=== PATIENT | female | born 1970 | race Caucasian/White ===

== ENCOUNTER 2016-11-19 17:03 | Inpatient (IN) | payer MEDICARE, MEDICAID ==
[~2016-11-19] VITALS: Ht 162.6 cm; Wt 60.0 kg
[~2016-11-19 17:03] MED LIST: BEN50; LAMO100T83 PO; LAMO25TA6
[2016-11-19] MEDS ORDERED: ACETAMINOPHEN 325 MG TAB ONE (19:19)
[2016-11-19] MEDS ORDERED: LIDOCAINE 4% CR ONE (19:28)
[2016-11-19 21:46] LABS: CALCIUM 9.8 mg/dl (8.4-10.2); CREATININE 0.64 mg/dl (0.44-1.00); POTASSIUM 3.6 mmol/L (3.5-5.1)
[2016-11-20] VITALS (10 sets, daily range): BP systolic 95–111; BP diastolic 46–67; PULSE 102–106; RESP 16–18; TEMP 99.2; Ht 162.6 cm; Wt 60.0 kg
[2016-11-20] MEDS ORDERED: LIDOCAINE 4% CR TOP ONE
[2016-11-20 00:20] LABS: ABNORMAL IP MESSAGE 1; ADD SCAN DIFF NO; BASOPHIL # 0.1 10^3/ul (0.0-0.1); EOSINOPHILS # 0.6 10^3/ul (0.0-0.5); EOSINOPHILS % 5.6 % (0.0-7.0); HEMATOCRIT 28.5 % (37.0-47.0); HEMOGLOBIN 7.8 g/dl (12.0-16.0); LYMPHOCYTES % 18.3 % (15.0-51.0); MEAN CORPUSCULAR HEMOGLOBIN 17.3 pg (29.0-33.0); MEAN CORPUSCULAR HGB CONC 27.4 g/dl (32.0-37.0); MEAN CORPUSCULAR VOLUME 63.3 fl (82.0-101.0); MEAN PLATELET VOLUME 9.8 fl (7.4-10.4); MONOCYTES % 9.4 % (0.0-11.0); NEUTROPHIL # 7.1 10^3/ul (1.6-7.5); NEUTROPHILS % 65.3 % (39.0-77.0); PLATELET COUNT 361 10^3/UL (140-415); RED CELL DISTRIBUTION WIDTH 18.3 % (11.5-14.5); WHITE BLOOD COUNT 10.9 10^3/ul (4.8-10.8)
[2016-11-20] MEDS ORDERED: RIVAROXABAN 20 MG TABLET PO ONE (01:00)
--- NOTE | 2016-11-20 01:01 | RADRPT ---
PROCEDURE: US Lower extremity Venous. CLINICAL INDICATION: Right leg pain. TECHNIQUE: Multiple sonographic images of the right lower extremity deep venous system was obtaine d utilizing ramey scale, color-flow, compressive sonography and doppler imaging with augmentation. T he images were reviewed on a PACS workstation. COMPARISON: None. FINDINGS: Deep venous thrombosis in the distal right superficial femoral vein extending into the popliteal vei n, with superficial thrombophlebitis in the calf. Otherwise, there is normal compressibility and fl ow within the common femoral, deep femoral, and proximal to mid superficial femoral veins. IMPRESSION: Deep venous thrombosis in the distal right superficial femoral vein extending to the popliteal vein, with superficial thrombophlebitis of the calf. These findings and impression were discussed with Dr. Bolanos of the [facility] em ergency department at the conclusion of this examination by the undersigned interpreting radiologist . RPTAT: UU Physician Jean Paul Date Time Electronically viewed and signed by Physician Jean Paul on 11/20/2016 01:01 JORGE/
--- NOTE | 2016-11-20 01:40 | RADRPT ---
PROCEDURE: XR Chest. CLINICAL INDICATION: Shortness of breath. TECHNIQUE: AP Portable chest. COMPARISON: 04/20/2014 FINDINGS: The cardiomediastinal silhouette is normal. The lungs are clear. The osseous structures are unrema rkable. IMPRESSION: No acute findings. RPTAT: HIKT .Alessandro Lozano MD, MD Date Time Electronically viewed and signed by .Alessandro Lozano MD, MD on 11/20/2016 01:39 .T/
[2016-11-20] MEDS ORDERED: SOD CHLORIDE 0.9% 100 ML ONE (01:58)
[2016-11-20] MEDS ORDERED: IOHEXOL 100 ML ONE (01:58)
[2016-11-20] MEDS ORDERED: LORAZEPAM 2 MG INJ IV ONE ×3 (02:00→06:00)
[2016-11-20] MEDS ORDERED: LORAZEPAM 2 MG INJ ONE ×2 (02:22→06:01)
--- NOTE | 2016-11-20 02:54 | EN ---
Date/Time of Note Date/Time of Note DATE: 11/20/16 TIME: 02:49 ER Progress Note This is a 46-year-old female that presents to the ER with right lower extremity calf pain that started 3 days ago. Patient states that she usually has swelling however pain is different. This patient was seen by nurse practitioner China Strickland, and she told me to follow-up on lower extremity ultrasounds. Patient was found to have a lower extremity DVT. Patient did admit to shortness of breath. Full workup to rule out pulmonary embolism was ordered, however patient has a phobia of needles and states she has PTSD. She was refusing to get IV started, I offered LMX for her and urged her that not getting workup could result in her . Patient refused IV. I spoke to patient, along with the nurses and even crm technical lead. Patient eventually decided she would do the IV if we wait an hour for LMX to kick in. IV was started, however when patient was in the CT room she was experiencing a lot of pain when contrast was being pushed, because of this another IV would have to be started. Patient refuses. I ordered 2 mg of Ativan IV, in hopes of making patient more calm for IV insertion. I discussed this case thoroughly with my supervising physician Dr. Bolanos. It is eminent that patient gets workup for pulmonary embolism. She will be given 20 mg of Xarelto p.o. for her DVT. Patient did get CTA and has bilateral PE's. Please refer to Dr. Bolanos's note for further management and care. ABELARDO YORK Nov 20, 2016 02:54
--- NOTE | 2016-11-20 03:31 | RADRPT ---
PROCEDURE: CTA Chest CLINICAL INDICATION: Shortness of breath TECHNIQUE: Thin section spiral CT images were obtained through the vasculature of the chest during administration of 85 cc of Omnipaque 350 contrast material. Multiplanar reconstructions and 3-D ma ximum intensity projection reconstructed images were performed. The images were reviewed on a PACS workstation. The total exam CTDI equals 6.15 mGy, and the total exam DLP equals 268.88 mGy-cm. On e or more of the following dose reduction techniques were used: automated exposure control, adjustme nt of the mA and/or kV according to patient size, or use of iterative reconstruction technique. COMPARISON: Chest x-ray from the same day FINDINGS: There are moderate-sized bilateral pulmonary emboli. On the right, emboli are seen extending from t he right main pulmonary artery into upper and lower lobe branches wall on the left, emboli are seen and second and third order upper and lower lobe branches. There is no evidence for right heart stra in. 1.9 cm right thyroid low attenuation lesion is seen. The ascending aorta is slightly ectatic, measuring 3.6 cm in diameter. No pleural or pericardial effusion is seen. No hilar or mediastinal adenopathy is seen. Limited imaging of the upper abdomen is unremarkable. IMPRESSION: Moderately large bilateral pulmonary emboli, right greater than left. There is not definite evidenc e for right heart strain. Slightly dilated ascending aorta. Echocardiogram follow-up could be cons idered. 1.9 cm low attenuation lesion in the right thyroid. Elective thyroid ultrasound is suggested. Results were called to the physician's glass ribbon machine operator assistant, Nalini Worthy at 11/20/2016 3:28:27 AM Critical results: Pulmonary embolus RPTAT: HLBE Physician Hernan Date Time Electronically viewed and signed by Jenni Oliva Physician on 11/20/2016 03:30 LE/
--- NOTE | 2016-11-20 03:56 | ERA ---
ER Documentation Chief Complaint Date/Time DATE: 11/20/16 TIME: 03:53 Chief Complaint HPI This is a 46-year-old female patient presents to the emergency room for evaluation of right-sided calf pain. The patient does state she has a history of bipolar and epilepsy. She states that the pain is been present for 2 weeks duration. She localizes the right calf. She does state she has mild shortness of breath associated with it. ROS All systems reviewed and are negative except as per history of present illness. Medications Home Meds Reported Medications Diphenhydramine Hcl* (Benadryl*) 50 Mg Cap 04/18/12 Lamotrigine (Lamictal) 25 Mg Tablet 04/18/12 Lamotrigine* (Lamictal*) 100 Mg Tablet 04/18/12 Allergies Allergies: Coded Allergies: No Known Allergy (Unverified , 04/20/14) PMhx/Soc Anesthesia Reaction: No Physical Exam Vitals Vital Signs Date Time Temp Pulse Resp B/P Pulse Ox O2 Delivery O2 Flow Rate FiO2 11/20/16 01:05 88 18 128/75 100 Room Air Physical Exam INITIAL VITAL SIGNS: Reviewed by me GENERAL: The patient is well developed and appropriate for usual state of health in no apparent distress HEENT: Pupils equal, round, and reactive to light. EOMI. There is no scleral icterus. NECK: C-spine is soft and supple, there is no meningismus. There is no cervical lymphadenopathy. LUNGS: Clear to auscultation bilaterally. There are no rales, wheezes or rhonchi. HEART: Regular rate and rhythm, no murmurs, clicks, rubs or gallops. ABDOMEN: Soft, non-tender, non-distended. There are bowel sounds in all four quadrants. No rebound or guarding. EXTREMITIES: Positive Homans sign, right there is no peripheral cyanosis or edema. No focal swelling or erythema. NEUROLOGICAL: The patient moves all four extremities with 5/5 strength. Cranial nerves II - XII are intact. Normal gait. Alert and oriented SKIN: There is no apparent rash or petechiae. HEME/LYMPHATIC: There is no evidence of excessive bruising or lymphedema. PSYCHIATRIC: The patient does not appear anxious or depressed. Result Diagram: 11/19/16195411/19/161954 Results 24 hrs Laboratory Tests Test 11/19/16 19:55 White Blood Count 10.910^3/ul Red Blood Count 4.5010^6/ul Hemoglobin 7.8g/dl Hematocrit 28.5% Mean Corpuscular Volume 63.3fl Mean Corpuscular Hemoglobin 17.3pg Mean Corpuscular Hemoglobin Concent 27.4g/dl Red Cell Distribution Width 18.3% Platelet Count 91568^3/UL Mean Platelet Volume 9.8fl Neutrophils % 65.3% Lymphocytes % 18.3% Monocytes % 9.4% Eosinophils % 5.6% Basophils % 1.0% Nucleated Red Blood Cells % 0.0/100WBC Neutrophils # 7.110^3/ul Lymphocytes # 2.010^3/ul Monocytes # 1.010^3/ul Eosinophils # 0.610^3/ul Basophils # 0.110^3/ul Nucleated Red Blood Cells # 0.010^3/ul Sodium Level 139mmol/L Potassium Level 3.6mmol/L Chloride Level 107mmol/L Carbon Dioxide Level 22mmol/L Anion Gap 14 Blood Urea Nitrogen 13mg/dl Creatinine 0.64mg/dl Glucose Level 103mg/dl Calcium Level 9.8mg/dl Current Medications Medications (Trade) Dose Ordered Sig/Steve Route PRN Reason Start Time Stop Time Status Last Admin Dose Admin Lidocaine (Lmx 4% Plus) 1 applic ONCE ONCE TOP 11/20/16 00:00 11/20/16 00:01 DC 11/20/16 00:00 Rivaroxaban (Xarelto) 20 mg ONCE ONCE PO 11/20/16 01:00 11/20/16 01:01 DC 11/20/16 01:00 Lorazepam (Ativan) 0.5 mg ONCE ONCE IV 11/20/16 02:00 11/20/16 02:21 DC IV Flush 10 ml 10 ml STK-MED ONCE .ROUTE 11/20/16 01:58 11/20/16 01:59 DC 11/20/16 01:58 Sodium Chloride 100 ml @ ud STK-MED ONCE .ROUTE 11/20/16 01:58 11/20/16 01:59 DC 11/20/16 01:58 Iohexol (Omnipaque) 100 ml @ ud STK-MED ONCE .ROUTE 11/20/16 01:58 11/20/16 01:59 DC 11/20/16 01:58 Lorazepam (Ativan) 2 mg ONCE ONCE IV 11/20/16 02:30 11/20/16 02:31 DC 11/20/16 02:25 Procedures/MDM EKG: Rate/Rhythm: [Normal Sinus Rhythm] QRS, ST, T-waves: [No changes consistent w/ acute ischemia] Impression: [No evidence of ischemia or arrhythmia] Chest X-ray 1V Interpreted by me: Soft Tissue: No acute abnormalities Bones: No acute abnormalities Mediastinum/Cardiac Silhouette/Lungs: [No acute abnormalities] CTA chest: Moderately large bilateral pulmonary emboli, right greater than left. There is not definite evidence for right heart strain. Slightly dilated ascending aorta. Echocardiogram follow-up could be considered. 1.9 cm low attenuation lesion in the right thyroid. Elective thyroid ultrasound is suggested. Results were called to the physician's or assistant, Nalini Worthy at 11/20/2016 3: 28:27 AM Critical results: Pulmonary embolus This 46-year-old female presents to the ER for evaluation of right sided calf pain and mild shortness of breath. The this patient was found to have a positive DVT. She did continue to complain of shortness of breath and a CT Marilee was obtained which did confirm suspicion of bilateral pulmonary emboli. The patient did receive 20 mg of Xarelto p.o. for DVT, and was subsequently started on a heparin drip for pulmonary embolism per protocol. The patient is hemodynamically stable at this time. She is aware of her condition and is okay with the plan for admission. The patient will be admitted at this time under the care of Dr. Huerta. The patient is a stable for telemetry at this time. Cardiac Critical Care: Excluding all billable procedures Time: 42 minutes Treatments/Evaluations: Close monitoring for dangerous arrhythmia and cardiovascular collapse, while treating with advance cardiac medications and techniques. Departure Diagnosis: Primary Impression: Bilateral pulmonary embolism Additional Impressions: Right leg DVT Microcytic anemia Condition: Serious DEVANGGEORGINA GUY Nov 20, 2016 03:56
[2016-11-20] MEDS ORDERED: ACETAMINOPHEN 325 MG TAB PO PRN ×2 (04:00→05:30)
[2016-11-20] MEDS ORDERED: ONDANSETRON 4 MG INJ IV PRN ×2 (04:00→05:30)
[2016-11-20 04:20] LABS: INR 0.9; PROTIME 12.1 Sec (12.2-14.2); PT RATIO 0.9
[2016-11-20 04:21] LABS: PARTIAL THROMBOPLASTIN TIME 44.4 Sec (25.0-35.0)
[2016-11-20 04:23] LABS: ALANINE AMINOTRANSFERASE 36 IU/L (13-69); ALBUMIN 4.5 g/dl (3.3-4.9); ALBUMIN/GLOBULIN RATIO 1.55; ALKALINE PHOSPHATASE 140 IU/L (42-121); ANION GAP 17 (8-16); ASPARTATE AMINO TRANSFERASE 27 IU/L (15-46); BILIRUBIN,INDIRECT 0.1 mg/dl (0-1.1); BILIRUBIN,TOTAL 0.1 mg/dl (0.2-1.3); BLOOD UREA NITROGEN 15 mg/dl (7-20); CALCIUM 9.5 mg/dl (8.4-10.2); CARBON DIOXIDE 18 mmol/L (21-31); CHLORIDE 108 mmol/L (97-110); CREATININE 0.65 mg/dl (0.44-1.00); GLUCOSE 102 mg/dl (70-220); POTASSIUM 3.8 mmol/L (3.5-5.1); SODIUM 139 mmol/L (135-144); TOTAL PROTEIN 7.4 g/dl (6.1-8.1)
[2016-11-20 05:00] LABS: TROPONIN-I < 0.012 ng/ml (0.00-0.12)
[2016-11-20] MEDS ORDERED: HEPARIN 25000 UNITS/250 ML 250 ML IV STA (05:11)
[2016-11-20] MEDS ORDERED: HEPARIN 1000 UNITS/ML 10 ML INJ IV STA (05:11)
[2016-11-20] MEDS ORDERED: LAMOTRIGINE 25 MG TAB PO SCH (05:30)
[2016-11-20] MEDS ORDERED: LORAZEPAM 0.5 MG TAB PO PRN (05:30)
[2016-11-20] MEDS ORDERED: NACL 0.9% 3 ML SYG IV SCH (05:30)
--- NOTE | 2016-11-20 07:05 | HP ---
Date/Time of Note Date/Time of Note DATE: 11/20/16 TIME: 06:58 Assessment/Plan VTE Prophylaxis VTE Prophylaxis Intervention: heparin Assessment/Plan Chief Complaint/Hosp Course This is a 46 year female being admitted to telemetry floor for: #1 bilateral pulmonary embolism: CT shows Moderately large bilateral pulmonary emboli, right greater than left. There is not definite evidence for right heart strain. Slightly dilated ascending aorta. 2D echocardiogram ordered. Patient recently started on Xarelto for DVT however when patient was found to have pulmonary embolism. Patient was switched over to heparin. Prior to heparin starting, I did order coagulation studies protein C and S Antithrombin III lupus anticoagulant factor V. Continue to monitor patient on telemetry. Consider patient can go home on Xarelto versus heparin to Coumadin bridging. Patient does report a family history of clots as well as control use and recent travel which I will could be factors causing these clots. #2 DVT: Patient initially was started on Xarelto, however currently now on heparin drip. #3 bipolar: Continue Lamictal #4 Epilepsy: Will need to confirm this with the patient has she did not relate to me however he was on the ED documentation. #5 DVT and GI prophylaxis: Currently on heparin drip, Protonix Further treatment strategy will be put as per the clinical course Problems: HPI/ROS Admit Date/Time Admit Date/Time Nov 20, 2016 at 03:58 Hx of Present Illness Chief complaint, right calf pain, feeling tired This is a 46-year-old female patient presents to the emergency room for evaluation of right-sided calf pain. The patient does state she has a history of bipolar and epilepsy. She states that the pain is been present for 2 weeks duration. She localizes the right calf. She does state she has mild shortness of breath associated with it and it has been difficult for her to do simple things such as even get out of bed without feeling tired. Patient also reports anxiety to needles and IV access. Currently denies any hallucinations or being in a manic phase. Patient does report that approximately 2-3 weeks ago she did go on a vacation to [place] she was flying and driving. Patient also reports that she is on control pills for mood Allergies: NKDA Medications: See JUANJOSE SIMMONS Const: As per HPI Eyes : No pain discharge or redness or change in visual acuity ENT: No pain, sore throat, congestion, congestion, dysphagia or discharge Respiratory: As per HPI Cardiovascular: No chest pain, palpitation, PND, or edema GI : no change in appetite, abdominal pain, nausea, vomiting, diarrhea, constipation, or change in the color his stool Genitourinary: No dysuria, hematuria, flank pain , discharge or CVA tenderness Musculoskeletal: As per history Skin: No rash, bruising or hives Neuro: No headache, dizziness, syncope, seizure, focal weakness Endocrine: No polyuria, polydipsia, temperature intolerance Psych: As per HPI PMH/Family/Social Past Medical History Bipolar, questionable history of epilepsy as it was mentioned in the ED documentation however patient did not reported to me will need to confirm. Past Surgical History Bilateral knee arthroscopic, no surgery, spinal surgery Family History Significant Family History: other (History of blood clots in her mom) Social History Alcohol Use: none Smoking Status: Former smoker Drug Use: none Exam/Review of Systems Vital Signs Vitals Vital Signs Date Time Temp Pulse Resp B/P Pulse Ox O2 Delivery O2 Flow Rate FiO2 11/20/16 04:05 99.2 103 20 133/80 96 Room Air Exam Exam General: Patient is well-developed well-nourished she is slightly anxious. HEENT: Atraumatic, normocephalic. The pupils are equal, round and reactive. Extraocular motor are intact Neck: Supple with full range of motion. No rigidity or meningismus Chest: Nontender Lungs: Clear to auscultation bilaterally no crackles rales or wheezing Heart: Normal S1-S2, Regular rhythm and rate. No murmur, S3, or S4 Abdomen: Soft , nontender, nondistended , bowel sounds are present. No guarding no rebound tenderness , No masses or organomegaly. No costovertebral temporal angle mass Extremities: Positive Homans sign the right lower extremity, no edema or cyanosis. Neurologic: Normal mental status, alert and oriented 3, speech normal, cranial nerves II through XII are intact, motor and sensory are intact, no focal weakness, no signs of hyperactivity or hallucinations. Labs Result Diagram: 11/19/16195411/20/16 0139 Medications Medications Current Medications Lorazepam (Ativan) 0.5 mg Q8H PRN PO ANXIETY; Start 11/20/16 at 05:30 Ondansetron HCl (Zofran Inj) 4 mg Q6H PRN IV NAUSEA AND/OR VOMITING; Start at 05:30 Acetaminophen (Tylenol Tab) 650 mg Q6H PRN PO PAIN LEVEL 1-3 OR FEVER; Start at 05:30 Morphine Sulfate (morphine) 2 mg Q4H PRN IV PAIN LEVEL 7-10; Start 11/20/16 at 05:30 Pantoprazole (Protonix Iv) 40 mg DAILY@06 IV ; Start 11/20/16 at 06:00 TYRESE BOWIE Nov 20, 2016 07:05
[2016-11-20 07:32] LABS: FREE T3 4.57 pg/ml (2.77-5.27)
[2016-11-20 07:45] LABS: THYROID STIMULATING HORMONE 2.99 MIU/L (0.465-4.680)
[2016-11-20] MEDS ORDERED: HEPARIN 1000 UNITS/ML 10 ML INJ IV PRN ×2 (09:00)
[2016-11-20] MEDS ORDERED: HEPARIN 25000 UNITS/250 ML 250 ML IV SCH (09:00)
[2016-11-20] MEDS ORDERED: HEPARIN 1000 UNITS/ML 10 ML INJ IV ONE (09:00)
[2016-11-20] MEDS: PANTOPRAZOLE 40 MG INJ IV SCH (09:17)
[2016-11-20] MEDS: morphine 2 MG INJ IV PRN ×2 (09:23→13:49)
[2016-11-20] MEDS ORDERED: ZOLP10TA PO (10:08)
[2016-11-20] MEDS ORDERED: ENOXAPARIN 100 MG/ML SYG SC SCH (11:00)
[2016-11-20] MEDS ORDERED: ENOXAPARIN 60 MG/0.6 ML SYG SC SCH ×2 (11:15→11:30)
[2016-11-20 14:59] LABS: ADD SCAN DIFF NO
[2016-11-20 15:00] LABS: ABNORMAL IP MESSAGE 1; HEMATOCRIT 22.1 % (37.0-47.0); MEAN CORPUSCULAR HEMOGLOBIN 17.8 pg (29.0-33.0); MEAN CORPUSCULAR HGB CONC 28.5 g/dl (32.0-37.0); MEAN CORPUSCULAR VOLUME 62.4 fl (82.0-101.0); MEAN PLATELET VOLUME 9.3 fl (7.4-10.4); PLATELET COUNT 289 10^3/UL (140-415); RED BLOOD COUNT 3.54 10^6/ul (4.20-5.40); RED CELL DISTRIBUTION WIDTH 17.9 % (11.5-14.5); WHITE BLOOD COUNT 7.7 10^3/ul (4.8-10.8)
[2016-11-20 15:07] LABS: HEMOGLOBIN 6.3 g/dl (12.0-16.0)
[2016-11-20 15:16] LABS: INR 1.16; PROTIME 14.8 Sec (12.2-14.2); PT RATIO 1.2
[2016-11-20 15:17] LABS: PARTIAL THROMBOPLASTIN TIME 36.3 Sec (25.0-35.0)
--- NOTE | 2016-11-20 15:25 | CONS ---
Date/Time of Note Date/Time of Note DATE: 11/20/16 TIME: 15:13 Assessment/Plan Assessment/Plan Problems: (1) Right leg DVT Status: Acute Comment: continue anticoagulants and compression stockings \ hypercoag w/u ordered. rec at least 6 months of treatment because of PE but this will change to indefinite if any of the hypercoag w/u results are positive. Qualifiers: (2) Bilateral pulmonary embolism Status: Acute Comment: clinically stable but echo may be needed at some point as baseline rx duration for PE is 6-9 months unless longer because of hypercoag results will add prothrombin gene mutation, homocystine and APLA (3) Microcytic anemia Status: Acute Comment: severe anenmia with low MCV most likely iron deficiency and will do workup. She is hesitant for labs and injections because of anxiety and will add all the lab workup with am labs, Consultation Date/Type/Reason Admit Date/Time Nov 20, 2016 at 03:58 Date of Consultation: Nov 20, 2016 Type of Consultation: heme for Dr Wynn and Dr Lora Reason for Consultation DVT/PE Referring Provider: KATRINA IVERSON BRACER Hx of Present Illness Patient with extensive rt sided DVT and pulmonary embolism. She had travelled to [place] through [facility] and the aircraft on the way back was on the tarmac for almost 4 hours before the flight and she is also on OCP both of which could be a triggering factor. She also mentions that her mom has a diagnosis of antiphospholipid antibody. 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 She is scared of needles and takes OCP to stabilize her mood. Constitutional: no complaints Eyes: no complaints ENT: no complaints Respiratory: no complaints Cardiovascular: no complaints Gastrointestinal: no complaints Genitourinary: no complaints Musculoskeletal: bone/joint pain Neurologic: no complaints Endocrine: no complaints Past Surgical History Past Surgical Hx: no surgical history Family History Significant Family History: other (APLA in mom) Social History Alcohol Use: none Smoking Status: Former smoker Drug Use: none Exam/Review of Systems Vital Signs Vitals Vital Signs Date Time Temp Pulse Resp B/P Pulse Ox O2 Delivery O2 Flow Rate FiO2 11/20/16 12:19 106 11/20/16 11:53 98.6 18 98/46 97 11/20/16 04:05 Room Air Exam Constitutional: alert, oriented Psych: no complaints Head: normocephalic Eyes: nl conjunctiva Neck: supple Respiratory: normal air movement Cardiovascular: regular rate and rhythm Gastrointestinal: soft Results Result Diagram: 11/20/16 1450 11/20/16 0139 Results 24 hrs Laboratory Tests Test 11/19/16 19:55 11/20/16 01:39 11/20/16 05:54 11/20/16 14:50 White Blood Count 10.9 H 7.7 # Red Blood Count 4.50 3.54 #L Hemoglobin 7.8 L 6.3 *L Hematocrit 28.5 L 22.1 #L Mean Corpuscular Volume 63.3 L 62.4 L Mean Corpuscular Hemoglobin 17.3 L 17.8 L Mean Corpuscular Hemoglobin Concent 27.4 L 28.5 L Red Cell Distribution Width 18.3 H 17.9 H Platelet Count 361 289 Mean Platelet Volume 9.8 9.3 Neutrophils % 65.3 Lymphocytes % 18.3 Monocytes % 9.4 Eosinophils % 5.6 Basophils % 1.0 Nucleated Red Blood Cells % 0.0 Neutrophils # 7.1 Lymphocytes # 2.0 Monocytes # 1.0 H Eosinophils # 0.6 H Basophils # 0.1 Nucleated Red Blood Cells # 0.0 Sodium Level 139 139 Potassium Level 3.6 3.8 Chloride Level 107 108 Carbon Dioxide Level 22 18 L Anion Gap 14 17 H Blood Urea Nitrogen 13 15 Creatinine 0.64 0.65 Glucose Level 103 102 Calcium Level 9.8 9.5 Prothrombin Time 12.1 L Prothrombin Time Ratio 0.9 INR International Normalized Ratio 0.90 Activated Partial Thromboplast Time 44.4 H Total Bilirubin 0.1 L Direct Bilirubin 0.00 Indirect Bilirubin 0.1 Aspartate Amino Transf (AST/SGOT) 27 Alanine Aminotransferase (ALT/SGPT) 36 Alkaline Phosphatase 140 H Troponin I < 0.012 Total Protein 7.4 Albumin 4.5 Globulin 2.90 Albumin/Globulin Ratio 1.55 Thyroid Stimulating Hormone (TSH) 2.990 Free Thyroxine 1.02 Free Triiodothyronine (T3) pg/mL 4.57 Medications Medications Current Medications Lorazepam (Ativan) 0.5 mg Q8H PRN PO ANXIETY; Start 11/20/16 at 05:30 Ondansetron HCl (Zofran Inj) 4 mg Q6H PRN IV NAUSEA AND/OR VOMITING; Start at 05:30 Acetaminophen (Tylenol Tab) 650 mg Q6H PRN PO PAIN LEVEL 1-3 OR FEVER; Start at 05:30 Morphine Sulfate (morphine) 2 mg Q4H PRN IV PAIN LEVEL 7-10 Last administered on 11/20/16 13:49; Admin Dose 2 MG; Start 11/20/16 at 05:30 Pantoprazole (Protonix Iv) 40 mg DAILY@06 IV Last administered on 11/20/16 09: 17; Admin Dose 40 MG; Start 11/20/16 at 06:00 Enoxaparin Sodium (Lovenox) 60 mg Q12 SC Last administered on 11/20/16 11:44; Admin Dose 60 MG; Start 11/20/16 at 11:30 TY VOSS MD Nov 20, 2016 15:23
[2016-11-20 15:35] LABS: EOSINOPHILS # 0.2 10^3/ul (0.0-0.5); LYMPHOCYTES # 2.3 10^3/ul (0.8-2.9); MONOCYTE # 0.3 10^3/ul (0.3-0.9); NEUTROPHIL # 4.9 10^3/ul (1.6-7.5)
[2016-11-20 15:36] LABS: POLYCHROMASIA 1+
--- NOTE | 2016-11-20 16:04 | RADRPT ---
PROCEDURE: US Thyroid. CLINICAL INDICATION: Enlarged thyroid. TECHNIQUE: High-resolution sonography of the thyroid was performed in the axial and sagittal plane s. COMPARISON: None. FINDINGS: The right lobe measures 5.9 x 2.1 x 2.1 cm. The left lobe measures 4.0 x 0.9 x 1.4 cm. The isthmus measures 0.3 cm. The right lobe is larger than the left lobe. The thyroid is otherwise normal in size. Thyroid echogenicity is normal. There is a complex cyst in the mid right lobe measuring 1.9 x 2.8 x 1.4 cm. There is no other thyro id nodule. IMPRESSION: 1. Enlarged right lobe. 2. Complex cyst in the mid right lobe measuring 1.9 x 2.8 x 1.4 cm. This is probably benign. 3. Otherwise unremarkable study. RPTAT: QQ .Laith Whitehead MD, Date Time Electronically viewed and signed by .Laith Whitehead MD, on 11/20/2016 16:03 .R/
[2016-11-20] MEDS ORDERED: LIDOCAINE 1% (MPF) 5 ML VIAL SC ONE (16:30)
[2016-11-20] MEDS ORDERED: LIDOCAINE 2% (MDV) 20 ML INJ INJ ONE (17:00)
[2016-11-20] MEDS ORDERED: SOD CHLORIDE 0.9% 250 ML IV* ONE (17:09)
--- NOTE | 2016-11-20 17:23 | QN ---
Documentation Comment The patient has bilateral PE and extensive lower right lower extremity DVT. The patient was initially maintained on heparin drip. However heparin drip needs frequent aPTT check. The patient was refusing peripheral blood draw for aPTT checks. Therefore, the patient's anticoagulation was switched to subcutaneous Lovenox. A repeat H&H was drawn from a peripheral IV site. Repeat hemoglobin was 6.3. It is very likely that the sample from peripheral IV site is diluted causing falsely decreased hemoglobin levels. Therefore, the patient was informed about the necessity to drawl blood from a new peripheral site. However, the patient is refusing any new peripheral sticks stating that she is very afraid of needles. A repeat peripheral draw is essential to confirm the repeat hemoglobin of 6.3. Because of this a low hemoglobin of 6.3, the patient's anticoagulation has to be put on hold. The patient agreed to have a PICC line in place. However, the hospital PICC line team has left the hospital for the weekend. I tried calling the ER physician to put a central line for blood draw and transfusion of blood products. However, the ER physician verbalized that this is not an emergent situation and he is busy with the patients in the ER. Therefore, a PICC line was ordered to be done early in the morning on 11/21/2016. The patient's condition was discussed with the floor charge nurse Ana and the house superintendent Marilee LEBRON. The patient's parents were at the bedside and all the conversation was done with the patient regarding the necessity for a continuing anticoagulation, the reason for frequent blood draw and the risks of not treating the PE. As of now, the plan is to hold the Lovenox because of a hemoglobin of 6.3 and a transfused 2 units of PRBC by drawing type and screening from the peripheral IV site. Plan is to put a PICC line early in the morning for repeat blood draws. Case discussed with . KATRINA IVERSON NP Nov 20, 2016 17:23
[2016-11-20] MEDS ORDERED: FUROSEMIDE 20 MG INJ IV SCH (17:30)
--- NOTE | 2016-11-20 19:03 | RADRPT ---
Echocardiogram Report Patient Name: ABELARDO CARDOSO Gender: Female Date: 1970 Study Date: 20-Nov-2016 Broadcast Field Supervisor: Corina [facility] Location: [address] Ref. Physician: TYRESE BOWIE Quality: Technically Difficult Study Procedures: Transthoracic echocardiogram with complete 2D, M-Mode, and doppler examination. Indications: Bilateral PE. 2D/M Mode Doppler Measurement Value Normal Ranges Measurement Value Normal Ranges LVIDd 2D 3.7 3.5 - 5.6 cm AV Peak Puneet 1.4 m/sec LVIDs 2D 2.6 2.1 - 4.1 cm AV Peak PG 7.8 mmHg LVPWd 2D 0.9 0.6 - 1.1 cm LVOT Peak Puneet 1.2 m/sec IVSd 2D 0.9 0.6 - 1.1 cm LVOT Peak PG 6.0 mmHg AoR Diam 2D 2.4 2.0 - 3.7 cm MV E Peak Puneet 0.8 m/sec EDV 2D 58.0 cm3 MV A Peak Puneet 0.8 m/sec ESV 2D 17.6 cm3 MV E/A 1.0 LA Dimen 2D 2.5 2.3 - 4.0 cm MV Decel Time 161 msec MV Decel Rapides 5 MV E/A 1.0 Findings Left Ventricle: Overall, normal left ventricular systolic function. Not all segments visualized. Normal left ventricular cavity size. Normal left ventricular wall thickness. Ejection fraction is visually estimated at 60 %. Tissue Doppler/Mitral Doppler indices are consistent with impaired relaxation (Stage I diastolic dysfunction). Right Ventricle: Normal right ventricular size. Normal right ventricular systolic function. Left Atrium: The left atrium is normal in size. Right Atrium: The right atrium is normal in size. Mitral Valve: Mild mitral leaflet calcification. Trace mitral regurgitation. Aortic Valve: Normal appearance of the aortic valve. No significant aortic stenosis or insufficiency. Tricuspid Valve: Normal appearance and function of the tricuspid valve with trace physiologic regurgitation. Pericardium: Trivial pericardial effusion. Aorta: Normal aortic root. IVC: Normal size and normal respiratory collapse consistent with normal right atrial pressure. Conclusions Overall, normal left ventricular systolic function. Not all segments visualized. Normal left ventricular cavity size. Normal left ventricular wall thickness. Ejection fraction is visually estimated at 60 %. Tissue Doppler/Mitral Doppler indices are consistent with impaired relaxation (Stage I diastolic dysfunction). Normal right ventricular size. Normal right ventricular systolic function. The left atrium is normal in size. The right atrium is normal in size. No significant valvular stenosis or regurgitation seen. Trivial pericardial effusion. Electronically Signed By: Robby Finney 20-Nov-2016 19:02:00 Patient Name: ABELARDO CARDOSO Study Date: 20-Nov-[id number]
[2016-11-20] MEDS: hydrOXYzine HCL 25 MG TAB PO PRN (20:05)
[2016-11-20] MEDS: HYDROmorphONE 1 MG/ML SYG IV PRN (20:05)
[2016-11-20 20:11] LABS: HEMATOCRIT 22.7 % (37.0-47.0)
[2016-11-20 20:17] LABS: HEMOGLOBIN 6.3 g/dl (12.0-16.0)
[2016-11-20 20:35] LABS: IRON 11 ug/dl (35-150)
[2016-11-20 20:44] LABS: TOTAL IRON BINDING CAPACITY 486 ug/dl (241-421)
--- NOTE | 2016-11-20 20:49 | HP ---
DATE OF ADMISSION: 11/20/2016 TYPE OF CONSULTATION: VASCULAR SURGERY Dear Doctors: Ms. Ann is a 46-year-old female who presented to [facility] s econdary to right lower extremity pain that she has had over the past 2 weeks and some mild shortnes s of breath. During her workup, it was identified the patient has a significant pulmonary embolism and lower extremity deep venous thrombosis that was identified in her distal right femoral vein, pop liteal vein and superficial thrombophlebitis of the calf. At the moment, the patient denies shortne ss of breath, chest pain, nausea, vomiting, fever or chills. She denies lower extremity claudicatio n or rest pain. She does have right calf pain and itchiness. Patient also mentions that she does h ave bilateral lower extremity swelling that she has had for some time. Speaking with the patient, s he is on oral contraceptive pills and she does have history of recent travel, in which she was on a prolonged flight. 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 PAST MEDICAL HISTORY: Entails chronic back pain, varicose veins, anxiety disorder, bipolar disorder . PAST SURGICAL HISTORY: Multiple injections in her back secondary to her chronic back pain. FAMILY HISTORY: Positive for her mom having APLA. SOCIAL HISTORY: She was a former smoker currently denies tobacco, alcohol or illicit drug use. PHYSICAL EXAMINATION: GENERAL: Alert and oriented x3, no apparent distress. HEENT: Normocephalic, atraumatic. PERRLA, EOMI. Mucosa moist. NECK: Supple. No carotid bruit. PULMONARY: Clear to auscultation bilaterally. No crackles. CARDIOVASCULAR: S1, S2 present. No murmurs. ABDOMEN: Soft, nontender, nondistended. Bowel sounds positive. RIGHT LOWER EXTREMITY: Palpable femoral pulse, faint pedal pulse. Motor, sensory intact. Cap refi ll 2 to 3 seconds. Edema 2 to 3+, some calf discomfort. LEFT LOWER EXTREMITY: Palpable femoral pulse, palpable pedal pulse. Motor, sensory intact. Cap re fill 2 to 3 seconds. No ulcers or edema. ASSESSMENT AND PLAN: 1. Right lower extremity deep vein thrombosis and pulmonary embolism: It seems the patient has dev eloped extensive right lower extremity deep venous thrombosis that is in her distal femoral vein ext ending to her popliteal vein. At the moment, would recommend for the patient to undergo anticoagula tion and will plan to follow the patient with our multidisciplinary team. No indication for an endo vascular intervention as the thrombosis does not extend to the common femoral vein. Recommend hematology evaluation as the patient may have a hypercoagulable state as she does have a p ositive family history. Further would recommend for the patient to not take oral contraceptive pills for now. 2. Optimize vascular status (BP meds, diet, nutrition, exercise, sugar control, antiplatelets). 3. Elevate right lower extremity. 4. Recommend applying Pino wrap from the toes all the way up to the upper thigh for alleviating her edema and for comfort. Discussed findings, plan and management with the patient, she understands. Thank you for allowing us to partake in the care of your patient. Please call with any questions. Dictated By: SOCORRO MILLER/MARILY Conf#: [id number] DID#: [id number]
[2016-11-20] MEDS: ZOLPIDEM 5 MG TAB PO PRN (21:46)
[2016-11-21] VITALS (12 sets, daily range): BP systolic 99–124; BP diastolic 53–80; PULSE 83–106; RESP 18–20
[2016-11-21] MEDS: PANTOPRAZOLE 40 MG INJ IV SCH (04:15)
[2016-11-21] MEDS: HYDROmorphONE 1 MG/ML SYG IV PRN ×4 (06:31→22:39)
--- NOTE | 2016-11-21 12:08 | RADRPT ---
PROCEDURE: XR Chest. CLINICAL INDICATION: Check PICC line position. TECHNIQUE: Single frontal view. COMPARISON: 11/20/2016. FINDINGS: There is a left arm PICC line with the tip in the lower superior vena cava. The lungs are clear. The heart size is normal. There is no pleural effusion. There is no pneumothorax. IMPRESSION: 1. Satisfactory position of left arm PICC line. 2. Otherwise normal chest radiograph. RPTAT: QQ .Laith Whitehead MD, MD Date Time Electronically viewed and signed by .Laith Whitehead MD, MD on 11/21/2016 12:08 .R/
[2016-11-21] MEDS: hydrOXYzine HCL 25 MG TAB PO PRN (12:20)
--- NOTE | 2016-11-21 12:39 | PN ---
Date/Time of Note Date/Time of Note DATE: 11/21/16 TIME: 12:25 Assessment/Plan VTE Prophylaxis VTE Prophylaxis Intervention: LMWH Lines/Catheters IV Catheter Type (from Nrsg): PICC Line Central line still needed: Yes Urinary Cath still in place: No Assessment/Plan Assessment/Plan IMPRESSION 1.Bilateral PE 2. Right LE DVT 3. Bipolar d/o 4. Seizure d/o 5. Microcytic Iron def Anemia: PLAN cont anticoagulation will start IV iron check FOBT and GI consult pain mgmt appreciate vascular and Heme input Subjective 24 Hr Interval Summary Free Text/Dictation c/o pain Exam/Review of Systems Vital Signs Vitals Vital Signs Date Time Temp Pulse Resp B/P Pulse Ox O2 Delivery O2 Flow Rate FiO2 11/21/16 11:49 98.9 94 18 123/80 18 Room Air Intake and Output 11/20/16 11/20/16 11/21/16 15:00 23:00 07:00 Intake Total 600 ml 1650 ml Balance 600 ml 1650 ml Exam Constitutional: alert, oriented, well developed Head: atraumatic, normocephalic Eyes: EOMI, PERRL Respiratory: diminished breath sounds Cardiovascular: other (tachyacrdic with regular rhythm) Gastrointestinal: non-tender, soft Extremities: calf tenderness, normal pulses Results Result Diagram: 11/20/16199911/20/16 0139 Results 24 hrs Laboratory Tests Test 11/20/16 14:50 11/20/16 20:00 11/21/16 10:50 White Blood Count 7.7 # Red Blood Count 3.54 #L Hemoglobin 6.3 *L 6.3 *L Hematocrit 22.1 #L 22.7 L Mean Corpuscular Volume 62.4 L Mean Corpuscular Hemoglobin 17.8 L Mean Corpuscular Hemoglobin Concent 28.5 L Red Cell Distribution Width 17.9 H Platelet Count 289 Mean Platelet Volume 9.3 Neutrophils % 63.0 Lymphocytes % 30.0 Monocytes % 4.0 Eosinophils % 3.0 Neutrophils # 4.9 Lymphocytes # 2.3 Monocytes # 0.3 Eosinophils # 0.2 Polychromasia 1+ Prothrombin Time 14.8 #H Prothrombin Time Ratio 1.2 INR International Normalized Ratio 1.16 Activated Partial Thromboplast Time 36.3 H Iron Level 11 L Total Iron Binding Capacity 486 H Percent Iron Saturation 2 L Ferritin 3.9 L Urine Test NEGATIVE Medications Medications Current Medications Lorazepam (Ativan) 0.5 mg Q8H PRN PO ANXIETY; Start 11/20/16 at 05:30 Ondansetron HCl (Zofran Inj) 4 mg Q6H PRN IV NAUSEA AND/OR VOMITING; Start at 05:30 Acetaminophen (Tylenol Tab) 650 mg Q6H PRN PO PAIN LEVEL 1-3 OR FEVER; Start at 05:30 Morphine Sulfate (morphine) 2 mg Q4H PRN IV PAIN LEVEL 7-10 Last administered on 11/20/16 13:49; Admin Dose 2 MG; Start 11/20/16 at 05:30 Pantoprazole (Protonix Iv) 40 mg DAILY@06 IV Last administered on 11/21/16 04: 15; Admin Dose 40 MG; Start 11/20/16 at 06:00 Enoxaparin Sodium (Lovenox) 60 mg Q12 SC Last administered on 11/20/16 11:44; Admin Dose 60 MG; Start 11/20/16 at 11:30; Status Future Hold Hydromorphone HCl (Dilaudid) 0.5 mg Q4H PRN IV PAIN Last administered on 10:49; Admin Dose 0.5 MG; Start 11/20/16 at 20:00 Hydroxyzine HCl (Atarax) 50 mg Q6 PRN PO ITCHING Last administered on 12:20; Admin Dose 50 MG; Start 11/20/16 at 20:00 Zolpidem Tartrate (Ambien) 10 mg HS PRN PO INSOMNIA Last administered on 21:46; Admin Dose 10 MG; Start 11/20/16 at 20:00 IV Flush (NS 10 ml) 10 ml PRN PRN IV IV PROTOCOL; Start 11/21/16 at 12:30 RAVEN MOLINA MD Nov 21, 2016 12:35
--- NOTE | 2016-11-21 13:47 | RADRPT ---
PROCEDURE: Ultrasound guidance for placement of needle in left upper extremity vein. CLINICAL INDICATION: Venous access. TECHNIQUE: Limited sonography of the left upper extremity was performed. Ultrasound images were recorded and s tored in the patient's medical record. COMPARISON: None. FINDINGS: The ultrasound images demonstrate a patent left upper extremity vein. The PICC line was inserted by the PICC line nurse. IMPRESSION: 1. Ultrasound guidance for a needle placement in a left upper extremity vein. 2. The left upper extremity vein is patent. RPTAT: QQ .Laith Whitehead MD, MD Date Time Electronically viewed and signed by .Laith Whitehead MD, MD on 11/21/2016 13:47 .R/
[2016-11-21 14:27] LABS: ADD SCAN DIFF NO
[2016-11-21 14:30] LABS: ABNORMAL IP MESSAGE 1; BASOPHIL # 0.1 10^3/ul (0.0-0.1); BASOPHILS % 0.8 % (0.0-2.0); EOSINOPHILS # 0.6 10^3/ul (0.0-0.5); EOSINOPHILS % 8.2 % (0.0-7.0); HEMOGLOBIN 9.4 g/dl (12.0-16.0); LYMPHOCYTES # 2.3 10^3/ul (0.8-2.9); LYMPHOCYTES % 29.2 % (15.0-51.0); MEAN CORPUSCULAR HEMOGLOBIN 20.8 pg (29.0-33.0); MEAN CORPUSCULAR HGB CONC 30.3 g/dl (32.0-37.0); MEAN CORPUSCULAR VOLUME 68.6 fl (82.0-101.0); MEAN PLATELET VOLUME 8.9 fl (7.4-10.4); MONOCYTE # 0.6 10^3/ul (0.3-0.9); MONOCYTES % 7.5 % (0.0-11.0); NEUTROPHIL # 4.2 10^3/ul (1.6-7.5); NEUTROPHILS % 53.9 % (39.0-77.0); PLATELET COUNT 305 10^3/UL (140-415); RED BLOOD COUNT 4.52 10^6/ul (4.20-5.40); RED CELL DISTRIBUTION WIDTH 23.3 % (11.5-14.5); WHITE BLOOD COUNT 7.8 10^3/ul (4.8-10.8)
[2016-11-21 14:55] LABS: IRON 27 ug/dl (35-150)
[2016-11-21 14:58] LABS: ALBUMIN 3.9 g/dl (3.3-4.9); ALBUMIN/GLOBULIN RATIO 1.5; BILIRUBIN,INDIRECT 0.2 mg/dl (0-1.1); BILIRUBIN,TOTAL 0.2 mg/dl (0.2-1.3); CHOL/HDL RATIO 3.5 RATIO; CREATININE 0.64 mg/dl (0.44-1.00); MAGNESIUM 1.9 mg/dl (1.7-2.5); POTASSIUM 3.1 mmol/L (3.5-5.1); TOTAL PROTEIN 6.5 g/dl (6.1-8.1)
[2016-11-21 15:05] LABS: TOTAL IRON BINDING CAPACITY 510 ug/dl (241-421)
--- NOTE | 2016-11-21 15:05 | CONS ---
Date/Time of Note Date/Time of Note DATE: 11/21/16 TIME: 14:57 Assessment/Plan Assessment/Plan Chief Complaint/Hosp Course 46 yo with # microcytic anemia -pt responded well to 2 units of PRBCs -pt found to be severely iron deficient with a ferritin of 2 -although patient states she is no bleeding vaginally will check a pelvic zi -agree with GI consult to r/o occult GI bleed -agree with starting IV iron. pt needs PICC placed #Bilateral PE and RLE DVT -pt has been on OCP's for at least 18years. Although this may be the cause,we still need to rule out underlying hypercoagulable disorder -Echo cardiogram ok and does not reveal evidence of heart strain -ok to start anticoagulation -if EGD/ colonoscopy reveal evidence of bleed and we are not able to anticoagulate the patient, we will have to consider placing an IVC filter Problems: (1) Microcytic anemia Status: Acute Comment: -pt has (2) Bilateral pulmonary embolism Status: Acute (3) Right leg DVT Status: Acute Qualifiers: Affected thrombotic vein of extremity: femoral Consultation Date/Type/Reason Admit Date/Time Nov 20, 2016 at 03:58 Initial Consult Date 11/20/16 Type of Consultation: hematology Reason for Consultation bilateral PE Referring Provider: KATRINA IVERSON ASSISTANT WAREHOUSE MANAGER 24 HR Interval Summary Free Text/Dictation pt was started on Lovenox. no bleeding. still craving ICE. found to be severely iron deficienct Exam/Review of Systems Vital Signs Vitals Vital Signs Date Time Temp Pulse Resp B/P Pulse Ox O2 Delivery O2 Flow Rate FiO2 11/21/16 12:12 97 11/21/16 11:49 98.9 18 123/80 18 Room Air Intake and Output 11/20/16 11/20/16 11/21/16 15:00 23:00 07:00 Intake Total 600 ml 1650 ml Balance 600 ml 1650 ml Exam Constitutional: alert, oriented Psych: no complaints Head: normocephalic Eyes: nl conjunctiva ENMT: nl external ears & nose Neck: non-tender, supple Respiratory: clear to auscultation, normal air movement Cardiovascular: nl pulses, regular rate and rhythm Gastrointestinal: soft Musculoskeletal: nl extremities to inspection, nl gait and stance Results Result Diagram: 11/21/16 1415 11/20/16 0139 Results 24 hrs Laboratory Tests Test 11/20/16 20:00 11/21/16 10:50 11/21/16 14:15 Hemoglobin 6.3 *L 9.4 #L Hematocrit 22.7 L 31.0 #L Iron Level 11 L Total Iron Binding Capacity 486 H Percent Iron Saturation 2 L Ferritin 3.9 L Urine Test NEGATIVE White Blood Count 7.8 Red Blood Count 4.52 # Mean Corpuscular Volume 68.6 L Mean Corpuscular Hemoglobin 20.8 L Mean Corpuscular Hemoglobin Concent 30.3 L Red Cell Distribution Width 23.3 #H Platelet Count 305 Mean Platelet Volume 8.9 Neutrophils % 53.9 Lymphocytes % 29.2 Monocytes % 7.5 Eosinophils % 8.2 H Basophils % 0.8 Nucleated Red Blood Cells % 0.0 Neutrophils # 4.2 Lymphocytes # 2.3 Monocytes # 0.6 Eosinophils # 0.6 H Basophils # 0.1 Nucleated Red Blood Cells # 0.0 Hemoglobin A1c 5.9 Medications Medications Current Medications Lorazepam (Ativan) 0.5 mg Q8H PRN PO ANXIETY; Start 11/20/16 at 05:30 Ondansetron HCl (Zofran Inj) 4 mg Q6H PRN IV NAUSEA AND/OR VOMITING; Start at 05:30 Acetaminophen (Tylenol Tab) 650 mg Q6H PRN PO PAIN LEVEL 1-3 OR FEVER; Start at 05:30 Morphine Sulfate (morphine) 2 mg Q4H PRN IV PAIN LEVEL 7-10 Last administered on 11/20/16 13:49; Admin Dose 2 MG; Start 11/20/16 at 05:30 Pantoprazole (Protonix Iv) 40 mg DAILY@06 IV Last administered on 11/21/16 04: 15; Admin Dose 40 MG; Start 11/20/16 at 06:00 Enoxaparin Sodium (Lovenox) 60 mg Q12 SC Last administered on 11/20/16 11:44; Admin Dose 60 MG; Start 11/20/16 at 11:30; Status Future Hold Hydromorphone HCl (Dilaudid) 0.5 mg Q4H PRN IV PAIN Last administered on 10:49; Admin Dose 0.5 MG; Start 11/20/16 at 20:00 Hydroxyzine HCl (Atarax) 50 mg Q6 PRN PO ITCHING Last administered on 12:20; Admin Dose 50 MG; Start 11/20/16 at 20:00 Zolpidem Tartrate (Ambien) 10 mg HS PRN PO INSOMNIA Last administered on 21:46; Admin Dose 10 MG; Start 11/20/16 at 20:00 IV Flush 10 ml 10 ml PRN PRN IV IV PROTOCOL; Start 11/21/16 at 12:30 Ferric Sodium Gluconate Complex/ Sodium Chloride (Ferrlecit/NS) 110 ml @ 100 mls/hr Q24H IVPB ; Start 11/21/16 at 12:30; Stop 11/23/16 at 13:35 GYPSY JIMENEZ M.D. Nov 21, 2016 15:05
[2016-11-21] MEDS ORDERED: POTASSIUM CHLORIDE (SR) 20 MEQ TAB PO STA (15:23)
[2016-11-21 15:28] LABS: THYROID STIMULATING HORMONE 1.18 MIU/L (0.465-4.680)
[2016-11-21 15:34] LABS: FERRITIN 10.3 ng/ml (6.2-137.0)
[2016-11-21 16:04] LABS: FOLATE 7.7 ng/ml (2.8-20.0)
--- NOTE | 2016-11-21 17:03 | PN ---
Date/Time of Note Date/Time of Note DATE: 11/21/16 TIME: 16:52 Assessment/Plan Lines/Catheters IV Catheter Type (from [facility]): PICC Line Hare in Place (from [facility]): No Assessment/Plan Chief Complaint/Hosp Course -Right lower extremity deep vein thrombosis and pulmonary embolism: It seems the patient has developed right lower extremity deep venous thrombosis in her distal femoral vein extending to popliteal vein. -Recommend for the patient to continue on anticoagulation with Heparin gtt ( short acting) for now since the pt had low H/H and being worked up with our GI colleagues. Pt may require an IVC filter if an ulcer is identified -Will continue to follow the patient with our multidisciplinary team. -No indication for an endovascular intervention as the thrombosis does not extend to the common femoral vein. -Appreciate hematology evaluation for hypercoagulable workup. Further would recommend for the patient to not take oral contraceptive pills for now. -Optimize vascular status (BP meds, diet, nutrition, exercise, sugar control, antiplatelets). -Elevate right lower extremity. -Recommend applying Pino wrap from the toes all the way up to the upper thigh for alleviating her edema and for comfort. -Discussed findings, plan and management with the patient, she understands. -Thank you for allowing us to partake in the care of your patient. Please call with any questions. Problems: Subjective 24 Hr Interval Summary no new vascular events overnight, Low H/H without bleeding being identified, transfused 2Units PRBC Exam/Review of Systems Vital Signs Vitals Vital Signs Date Time Temp Pulse Resp B/P Pulse Ox O2 Delivery O2 Flow Rate FiO2 11/21/16 16:12 106 11/21/16 15:25 98.2 20 109/69 96 11/21/16 11:49 Room Air Intake and Output 11/20/16 11/20/16 11/21/16 14:59 22:59 06:59 Intake Total 600 ml 1650 ml Balance 600 ml 1650 ml Exam Free Text/Dictation GENERAL: Alert and oriented x3, PULMONARY: Clear to auscultation bilaterally. CARDIOVASCULAR: S1, S2 present. ABDOMEN: Soft, nontender, nondistended. Bowel sounds positive. -RIGHT LOWER EXTREMITY: Palpable femoral pulse, faint pedal pulse. Motor, sensory intact. Cap refill 2 to 3 seconds. Edema 2 to 3+, calf discomfort. -LEFT LOWER EXTREMITY: Palpable femoral pulse, palpable pedal pulse. Motor, sensory intact. Cap refill 2 to 3 seconds. No ulcers or edema. Results Result Diagram: 11/21/16 1415 11/21/16 1415 SOCORRO ZHU MD Nov 21, 2016 17:03
[2016-11-21] MEDS ORDERED: SOD CHLORIDE 0.9% 100 ML ONE (17:09)
[2016-11-21] MEDS: SOD FERRIC GLUC COMPLX 125 MG in SOD CHLORIDE 0.9% 100 ML IVPB SCH (17:26)
[2016-11-21] MEDS ORDERED: HEPARIN 1000 UNITS/ML 10 ML INJ IV PRN (17:30)
--- NOTE | 2016-11-21 18:07 | CONS ---
Date/Time of Note Date/Time of Note DATE: 11/21/16 TIME: 17:51 Assessment/Plan Assessment/Plan Additional Assessment/Plan Assessment * Pulmonary embolism * Deep vein thrombosis * Anemia R/O Upper GI vs lower GI bleed vs others Iron deficiency * History of Bipolar Plan * EGD and colonoscopy 11/22/2016 1530 risks and benefit explained to patient, agreed planned procedure * Since patient will be on heparin drip may we request if we can hold heparin drip 6 hours prior to procedure * Recheck pt inr prior to procedure * Continue present management Consultation Date/Type/Reason Admit Date/Time Nov 20, 2016 at 03:58 Date of Consultation: Nov 21, 2016 Type of Consultation: Gastroenterology Reason for Consultation anemia/dvt Referring Provider: RAVEN MOLINA MD Hx of Present Illness 46 year old female with past medical history of seizure and bipolar disease who presented in the emergency room because of right sided calf pain.Patient claims that she having calf pain for the past 2 weeks.She denies any melena,hematemesis ,abdominal pain nor hematochezia but claims to be taking control pills. Emergency room work up revealed anemia with hemoglobin of 7.8 then drop 6.3.She received 2 units of PRBC and present hemoglobin is 9.4.Ultrasound of lower extremities revealed Deep venous thrombosis in the distal right superficial femoral vein extending to the popliteal vein, with superficial thrombophlebitis of the calf.CT angiogram revealeModerately large bilateral pulmonary emboli, right greater than left. There is not definite evidence for right heart strain. Slightly dilated ascending aorta. Echocardiogram follow-up could be considered. 1.9 cm low attenuation lesion in the right thyroid. Elective thyroid ultrasound is suggested. Patient was started on xarelto however shifted to heparin drip. We discuss the plan procedure which is EGD and colonoscopy tomorrow at 1530, risk and benefit explain to the patient .We will also request that heparin drip to be stooped prior to planned procedure if hematology and or pulmonology agrees. Constitutional: no complaints Eyes: no complaints ENT: no complaints Respiratory: no complaints Cardiovascular: no complaints Gastrointestinal: no complaints Genitourinary: no complaints Musculoskeletal: bone/joint pain, other (calf pain) Skin: no complaints Neurologic: no complaints Endocrine: no complaints Lymphatic: no complaints Psychological: no complaints Immunologic: no complaints Past Medical History Medical History: deep vein thrombosis, other (vipolar) Past Surgical History Past Surgical Hx: no surgical history Social History Alcohol Use: none Smoking Status: Former smoker Drug Use: none Exam/Review of Systems Vital Signs Vitals Vital Signs Date Time Temp Pulse Resp B/P Pulse Ox O2 Delivery O2 Flow Rate FiO2 11/21/16 16:12 106 11/21/16 15:25 98.2 20 109/69 96 11/21/16 11:49 Room Air Intake and Output 11/20/16 11/20/16 11/21/16 15:00 23:00 07:00 Intake Total 600 ml 1650 ml Balance 600 ml 1650 ml Exam Constitutional: alert, oriented, well developed Psych: nl mood/affect, no complaints Head: atraumatic, normocephalic Eyes: EOMI, PERRL, nl conjunctiva, nl lids, nl sclera ENMT: nl external ears & nose, nl lips & teeth, nl nasal mucosa & septum Neck: non-tender, supple Respiratory: clear to auscultation, normal air movement Cardiovascular: nl pulses, regular rate and rhythm Gastrointestinal: nl liver, spleen, non-tender, soft Musculoskeletal: nl extremities to inspection, nl gait and stance Extremities: normal pulses Neurological: nl speech, nl strength Skin: nl turgor, No rash or lesions Lymph: nl lymph nodes Results Result Diagram: 11/21/16 1415 11/21/16 1415 Results 24 hrs Laboratory Tests Test 11/20/16 20:00 11/21/16 10:50 11/21/16 14:15 Hemoglobin 6.3 *L 9.4 #L Hematocrit 22.7 L 31.0 #L Iron Level 11 L 27 #L Total Iron Binding Capacity 486 H 510 H Percent Iron Saturation 2 L 5 L Ferritin 3.9 L 10.3 Urine Test NEGATIVE White Blood Count 7.8 Red Blood Count 4.52 # Mean Corpuscular Volume 68.6 L Mean Corpuscular Hemoglobin 20.8 L Mean Corpuscular Hemoglobin Concent 30.3 L Red Cell Distribution Width 23.3 #H Platelet Count 305 Mean Platelet Volume 8.9 Neutrophils % 53.9 Lymphocytes % 29.2 Monocytes % 7.5 Eosinophils % 8.2 H Basophils % 0.8 Nucleated Red Blood Cells % 0.0 Neutrophils # 4.2 Lymphocytes # 2.3 Monocytes # 0.6 Eosinophils # 0.6 H Basophils # 0.1 Nucleated Red Blood Cells # 0.0 Sodium Level 142 Potassium Level 3.1 L Chloride Level 108 Carbon Dioxide Level 23 Anion Gap 14 Blood Urea Nitrogen 13 Creatinine 0.64 Glucose Level 139 Hemoglobin A1c 5.9 Calcium Level 9.0 Magnesium Level 1.9 Total Bilirubin 0.2 Direct Bilirubin 0.00 Indirect Bilirubin 0.2 Aspartate Amino Transf (AST/SGOT) 20 Alanine Aminotransferase (ALT/SGPT) 26 Alkaline Phosphatase 112 Total Protein 6.5 Albumin 3.9 Globulin 2.60 Albumin/Globulin Ratio 1.50 Triglycerides Level 258 H Cholesterol Level 168 LDL Cholesterol, Calculated 68 HDL Cholesterol 48 Cholesterol/HDL Ratio 3.5 Vitamin B12 Level 241 Folate 7.7 Thyroid Stimulating Hormone (TSH) 1.180 Medications Medications Current Medications Lorazepam (Ativan) 0.5 mg Q8H PRN PO ANXIETY; Start 11/20/16 at 05:30 Ondansetron HCl (Zofran Inj) 4 mg Q6H PRN IV NAUSEA AND/OR VOMITING; Start at 05:30 Acetaminophen (Tylenol Tab) 650 mg Q6H PRN PO PAIN LEVEL 1-3 OR FEVER; Start at 05:30 Morphine Sulfate (morphine) 2 mg Q4H PRN IV PAIN LEVEL 7-10 Last administered on 11/20/16 13:49; Admin Dose 2 MG; Start 11/20/16 at 05:30 Pantoprazole (Protonix Iv) 40 mg DAILY@06 IV Last administered on 11/21/16 04: 15; Admin Dose 40 MG; Start 11/20/16 at 06:00 Enoxaparin Sodium (Lovenox) 60 mg Q12 SC Last administered on 11/20/16 11:44; Admin Dose 60 MG; Start 11/20/16 at 11:30; Status Future Hold Hydromorphone HCl (Dilaudid) 0.5 mg Q4H PRN IV PAIN Last administered on 15:32; Admin Dose 0.5 MG; Start 11/20/16 at 20:00 Hydroxyzine HCl (Atarax) 50 mg Q6 PRN PO ITCHING Last administered on 12:20; Admin Dose 50 MG; Start 11/20/16 at 20:00 Zolpidem Tartrate (Ambien) 10 mg HS PRN PO INSOMNIA Last administered on 21:46; Admin Dose 10 MG; Start 11/20/16 at 20:00 IV Flush 10 ml 10 ml PRN PRN IV IV PROTOCOL; Start 11/21/16 at 12:30 Ferric Sodium Gluconate Complex/ Sodium Chloride (Ferrlecit/NS) 110 ml @ 100 mls/hr Q24H IVPB Last administered on 11/21/16 17:26; Admin Dose 100 MLS/HR; Start 11/21/16 at 12:30; Stop 11/23/16 at 13:35 KEVAN CALDERON MD Nov 21, 2016 18:01
[2016-11-21] MEDS ORDERED: BISACODYL (EC) 5 MG TAB PO ONE (18:30)
[2016-11-21] MEDS: HEPARIN 25000 UNITS/D5W 250 ML (VPH) IV SCH (18:31)
[2016-11-21] MEDS ORDERED: MAGNESIUM CITRATE 300 ML BTL PO ONE (20:30)
[2016-11-21] MEDS ORDERED: POLYETHYLENE GLYCOL 3350 119 GM POWDER PO ONE (21:30)
[2016-11-22] VITALS (17 sets, daily range): BP systolic 112–180; BP diastolic 67–95; PULSE 76–110; RESP 14–26
[2016-11-22] MEDS: ZOLPIDEM 5 MG TAB PO PRN (01:18)
[2016-11-22] MEDS: HEPARIN 25000 UNITS/D5W 250 ML (VPH) IV SCH ×2 (02:56→19:01)
[2016-11-22] MEDS: HYDROmorphONE 1 MG/ML SYG IV PRN ×4 (03:18→20:31)
[2016-11-22] MEDS: HEPARIN 1000 UNITS/ML 10 ML INJ IV PRN ×2 (03:32→19:11)
[2016-11-22] MEDS ORDERED: POLYETHYLENE GLYCOL 3350 119 GM POWDER PO ONE (06:00)
[2016-11-22] MEDS ORDERED: BISACODYL (EC) 5 MG TAB PO ONE (06:00)
[2016-11-22] MEDS: PANTOPRAZOLE 40 MG INJ IV SCH (06:18)
[2016-11-22 11:26] LABS: ADD SCAN DIFF NO
[2016-11-22 11:29] LABS: ABNORMAL IP MESSAGE 1; BASOPHIL # 0.1 10^3/ul (0.0-0.1); BASOPHILS % 0.8 % (0.0-2.0); EOSINOPHILS # 0.5 10^3/ul (0.0-0.5); EOSINOPHILS % 5.4 % (0.0-7.0); HEMATOCRIT 34.8 % (37.0-47.0); HEMOGLOBIN 10.1 g/dl (12.0-16.0); LYMPHOCYTES # 1.8 10^3/ul (0.8-2.9); LYMPHOCYTES % 19.5 % (15.0-51.0); MEAN CORPUSCULAR HEMOGLOBIN 20.1 pg (29.0-33.0); MEAN CORPUSCULAR VOLUME 69.2 fl (82.0-101.0); MEAN PLATELET VOLUME 9.4 fl (7.4-10.4); MONOCYTE # 0.6 10^3/ul (0.3-0.9); MONOCYTES % 6.8 % (0.0-11.0); NEUTROPHIL # 6.2 10^3/ul (1.6-7.5); NEUTROPHILS % 66.7 % (39.0-77.0); PLATELET COUNT 354 10^3/UL (140-415); RED BLOOD COUNT 5.03 10^6/ul (4.20-5.40); RED CELL DISTRIBUTION WIDTH 24.2 % (11.5-14.5); WHITE BLOOD COUNT 9.3 10^3/ul (4.8-10.8)
[2016-11-22] MEDS: SOD FERRIC GLUC COMPLX 125 MG in SOD CHLORIDE 0.9% 100 ML IVPB SCH (12:03)
--- NOTE | 2016-11-22 15:01 | CONS ---
Date/Time of Note Date/Time of Note DATE: 11/22/16 TIME: 14:56 Assessment/Plan Assessment/Plan Chief Complaint/Hosp Course 46 yo with # microcytic anemia -pt responded well to 2 units of PRBCs -pt found to be severely iron deficient with a ferritin of 2 -although patient states she is no bleeding vaginally will check a pelvic zi -agree with GI consult to r/o occult GI bleed. note patient does admit to using excessive NSAIDS -continue IV iron. PICC line has been placed #Bilateral PE and RLE DVT -pt has been on OCP's for at least 18years. Although this may be the cause,we still need to rule out underlying hypercoagulable disorder -Echo cardiogram ok and does not reveal evidence of heart strain -ok to start anticoagulation -if EGD/ colonoscopy reveal evidence of bleed and we are not able to anticoagulate the patient, we will have to consider placing an IVC filter Approximately 40 min were spent at patient's bedside and in coordination of her care Problems: Consultation Date/Type/Reason Admit Date/Time Nov 20, 2016 at 03:58 Initial Consult Date 11/20/16 Type of Consultation: Hematology Reason for Consultation iron deficiency anemia Referring Provider: RAVEN MOLINA MD 24 HR Interval Summary Free Text/Dictation pt was started on IV iron . still craving Ice Exam/Review of Systems Vital Signs Vitals Vital Signs Date Time Temp Pulse Resp B/P Pulse Ox O2 Delivery O2 Flow Rate FiO2 11/22/16 12:51 82 11/22/16 11:51 97.4 18 134/81 96 11/21/16 11:49 Room Air Intake and Output 11/21/16 11/21/16 11/22/16 15:00 23:00 07:00 Intake Total 1310 ml 1400 ml Output Total 8 ml Balance 1310 ml 1392 ml Exam Constitutional: alert, oriented Psych: no complaints Head: normocephalic Eyes: nl conjunctiva ENMT: nl external ears & nose, nl lips & teeth Neck: non-tender, supple Respiratory: clear to auscultation, normal air movement Cardiovascular: regular rate and rhythm Gastrointestinal: soft Musculoskeletal: nl extremities to inspection Results Result Diagram: 11/22/16 1020 11/21/16 1415 Results 24 hrs Laboratory Tests Test 11/22/16 01:17 11/22/16 07:57 11/22/16 10:20 Activated Partial Thromboplast Time 26.4 26.4 Lab Scanned Report BLOOD TRANSFUSION White Blood Count 9.3 Red Blood Count 5.03 Hemoglobin 10.1 L Hematocrit 34.8 L Mean Corpuscular Volume 69.2 L Mean Corpuscular Hemoglobin 20.1 L Mean Corpuscular Hemoglobin Concent 29.0 L Red Cell Distribution Width 24.2 H Platelet Count 354 Mean Platelet Volume 9.4 Neutrophils % 66.7 Lymphocytes % 19.5 Monocytes % 6.8 Eosinophils % 5.4 Basophils % 0.8 Nucleated Red Blood Cells % 0.0 Neutrophils # 6.2 Lymphocytes # 1.8 Monocytes # 0.6 Eosinophils # 0.5 Basophils # 0.1 Nucleated Red Blood Cells # 0.0 Medications Medications Current Medications Lorazepam (Ativan) 0.5 mg Q8H PRN PO ANXIETY; Start 11/20/16 at 05:30 Ondansetron HCl (Zofran Inj) 4 mg Q6H PRN IV NAUSEA AND/OR VOMITING; Start at 05:30 Acetaminophen (Tylenol Tab) 650 mg Q6H PRN PO PAIN LEVEL 1-3 OR FEVER; Start at 05:30 Morphine Sulfate (morphine) 2 mg Q4H PRN IV PAIN LEVEL 7-10 Last administered on 11/20/16 13:49; Admin Dose 2 MG; Start 11/20/16 at 05:30 Pantoprazole (Protonix Iv) 40 mg DAILY@06 IV Last administered on 11/22/16 06: 18; Admin Dose 40 MG; Start 11/20/16 at 06:00 Hydromorphone HCl (Dilaudid) 0.5 mg Q4H PRN IV PAIN Last administered on 12:44; Admin Dose 0.5 MG; Start 11/20/16 at 20:00 Hydroxyzine HCl (Atarax) 50 mg Q6 PRN PO ITCHING Last administered on 12:20; Admin Dose 50 MG; Start 11/20/16 at 20:00 Zolpidem Tartrate (Ambien) 10 mg HS PRN PO INSOMNIA Last administered on 01:18; Admin Dose 10 MG; Start 11/20/16 at 20:00 IV Flush 10 ml 10 ml PRN PRN IV IV PROTOCOL; Start 11/21/16 at 12:30 Ferric Sodium Gluconate Complex 125 mg/Sodium Chloride 110 ml @ 100 mls/hr Q24H IVPB Last administered on 11/22/16 12:03; Admin Dose 100 MLS/HR; Start at 12:30; Stop 11/23/16 at 13:35 Heparin Sodium (Porcine) (Heparin 46454 Units/250 ml) 250 ml @ 5.5 mls/hr Q24H IV Last administered on 11/22/16 02:56; Admin Dose 8 MLS/HR; Start 11/21/16 at 18:30 Heparin Sodium (Porcine) (Heparin (1000 Units/ml)) 4,800 unit PRN PRN IV PENDING LAB VALUE Last administered on 11/22/16 03:32; Admin Dose 4,800 UNIT; Start 11/22/16 at 03:00 GYPSY JIMENEZ M.D. Nov 22, 2016 15:01
--- NOTE | 2016-11-22 15:11 | CONS ---
Date/Time of Note Date/Time of Note DATE: 11/22/16 TIME: 15:08 Assessment/Plan Assessment/Plan Chief Complaint/Hosp Course 46 yo with # microcytic anemia -pt responded well to 2 units of PRBCs -pt found to be severely iron deficient with a ferritin of 2 -although patient states she is no bleeding vaginally will check a pelvic zi -agree with GI consult to r/o occult GI bleed. note patient does admit to using excessive NSAIDS. Pt to undergo endoscopy -continue IV iron. PICC line has been placed #Bilateral PE and RLE DVT -pt has been on OCP's for at least 18years. Although this may be the cause,we still need to rule out underlying hypercoagulable disorder. pt encouraged to stay off OCP's -Echo cardiogram ok and does not reveal evidence of heart strain -agree with continuing heparin gtt until 6 hours prior to colonoscopy -if EGD/ colonoscopy reveal evidence of bleed and we are not able to anticoagulate the patient, we will have to consider placing an IVC filter Approximately 40 min were spent at patient's bedside and in coordination of her care Problems: Consultation Date/Type/Reason Admit Date/Time Nov 20, 2016 at 03:58 Initial Consult Date 11/20/16 Type of Consultation: Hematology Reason for Consultation iron deficiency anemia/ Bilateral pulmonary embolism Referring Provider: RAVEN MOLINA MD 24 HR Interval Summary Free Text/Dictation no acute overnight events. pt continues on IV iron Exam/Review of Systems Vital Signs Vitals Vital Signs Date Time Temp Pulse Resp B/P Pulse Ox O2 Delivery O2 Flow Rate FiO2 11/22/16 12:51 82 11/22/16 11:51 97.4 18 134/81 96 11/21/16 11:49 Room Air Intake and Output 11/21/16 11/21/16 11/22/16 15:00 23:00 07:00 Intake Total 1310 ml 1400 ml Output Total 8 ml Balance 1310 ml 1392 ml Exam Constitutional: alert Psych: no complaints Head: normocephalic Eyes: nl conjunctiva ENMT: nl external ears & nose Neck: non-tender, supple Respiratory: clear to auscultation, normal air movement Cardiovascular: nl pulses, regular rate and rhythm Gastrointestinal: soft Musculoskeletal: nl extremities to inspection, nl gait and stance Extremities: normal pulses Results Result Diagram: 11/22/16 1020 11/21/16 1415 Results 24 hrs Laboratory Tests Test 11/22/16 01:17 11/22/16 07:57 11/22/16 10:20 Activated Partial Thromboplast Time 26.4 26.4 Lab Scanned Report BLOOD TRANSFUSION White Blood Count 9.3 Red Blood Count 5.03 Hemoglobin 10.1 L Hematocrit 34.8 L Mean Corpuscular Volume 69.2 L Mean Corpuscular Hemoglobin 20.1 L Mean Corpuscular Hemoglobin Concent 29.0 L Red Cell Distribution Width 24.2 H Platelet Count 354 Mean Platelet Volume 9.4 Neutrophils % 66.7 Lymphocytes % 19.5 Monocytes % 6.8 Eosinophils % 5.4 Basophils % 0.8 Nucleated Red Blood Cells % 0.0 Neutrophils # 6.2 Lymphocytes # 1.8 Monocytes # 0.6 Eosinophils # 0.5 Basophils # 0.1 Nucleated Red Blood Cells # 0.0 Medications Medications Current Medications Lorazepam (Ativan) 0.5 mg Q8H PRN PO ANXIETY; Start 11/20/16 at 05:30 Ondansetron HCl (Zofran Inj) 4 mg Q6H PRN IV NAUSEA AND/OR VOMITING; Start at 05:30 Acetaminophen (Tylenol Tab) 650 mg Q6H PRN PO PAIN LEVEL 1-3 OR FEVER; Start at 05:30 Morphine Sulfate (morphine) 2 mg Q4H PRN IV PAIN LEVEL 7-10 Last administered on 11/20/16 13:49; Admin Dose 2 MG; Start 11/20/16 at 05:30 Pantoprazole (Protonix Iv) 40 mg DAILY@06 IV Last administered on 11/22/16 06: 18; Admin Dose 40 MG; Start 11/20/16 at 06:00 Hydromorphone HCl (Dilaudid) 0.5 mg Q4H PRN IV PAIN Last administered on 12:44; Admin Dose 0.5 MG; Start 11/20/16 at 20:00 Hydroxyzine HCl (Atarax) 50 mg Q6 PRN PO ITCHING Last administered on 12:20; Admin Dose 50 MG; Start 11/20/16 at 20:00 Zolpidem Tartrate (Ambien) 10 mg HS PRN PO INSOMNIA Last administered on 01:18; Admin Dose 10 MG; Start 11/20/16 at 20:00 IV Flush 10 ml 10 ml PRN PRN IV IV PROTOCOL; Start 11/21/16 at 12:30 Ferric Sodium Gluconate Complex 125 mg/Sodium Chloride 110 ml @ 100 mls/hr Q24H IVPB Last administered on 11/22/16 12:03; Admin Dose 100 MLS/HR; Start at 12:30; Stop 11/23/16 at 13:35 Heparin Sodium (Porcine) (Heparin 80699 Units/250 ml) 250 ml @ 5.5 mls/hr Q24H IV Last administered on 11/22/16 02:56; Admin Dose 8 MLS/HR; Start 11/21/16 at 18:30 Heparin Sodium (Porcine) (Heparin (1000 Units/ml)) 4,800 unit PRN PRN IV PENDING LAB VALUE Last administered on 11/22/16 03:32; Admin Dose 4,800 UNIT; Start 11/22/16 at 03:00 GYPSY JIMENEZ M.D. Nov 22, 2016 15:11
[2016-11-22] MEDS ORDERED: PROPOFOL 60 ML ONE (17:24)
[2016-11-22] MEDS ORDERED: LIDOCAINE 2% (SDV) 5 ML INJ ONE (17:24)
--- NOTE | 2016-11-22 17:48 | RADRPT ---
PROCEDURE: Right upper extremity venous ultrasound CLINICAL INDICATION: Right arm pain and swelling, deep venous thrombosis TECHNIQUE: Denis scale, color doppler, spectral doppler ultrasound imaging of the venous system of the right upper extremity. Augmentation maneuvers were utilized. COMPARISON: No prior studies are available for comparison. FINDINGS: RIGHT: Internal jugular vein: Patent. Subclavian vein: Patent. Axillary vein: Patent. Brachial vein: Patent. Basilic vein: Focal thrombus is present within the antecubital region Cephalic vein: Patent. Radial vein: Patent. Ulnar vein: Patent. Partially visualized approximately 1.8 cm cystic nodule of the right lobe of the thyroid gland. IMPRESSION: No evidence of a deep vein thrombosis involving the right upper extremity. Focal superficial venous thrombus of the basilic vein in the region of the antecubital fossa. Partially assessed cystic nodule of the right lobe of the thyroid gland. RPTAT: AADD .Jimmy Jacobsen MD, MD Date Time Electronically viewed and signed by .Jimmy Jacobsen MD, on 11/22/2016 17:48 .B/
[2016-11-22] MEDS ORDERED: hydrALAzine 20 MG INJ IV PRN (23:30)
--- NOTE | 2016-11-22 23:58 | PN ---
Date/Time of Note Date/Time of Note DATE: 11/22/16 TIME: 23:58 Assessment/Plan Lines/Catheters IV Catheter Type (from Nrsg): Peripheral IV Urinary Cath still in place: No Assessment/Plan Assessment/Plan IMPRESSION 1.Bilateral PE 2. Right LE DVT 3. Bipolar d/o 4. Seizure d/o 5. Microcytic Iron def Anemia: 6. Right upper ext superficial thrombus PLAN cont anticoagulation cont IV iron check FOBT and GI consult pain mgmt appreciate vascular and Heme input Exam/Review of Systems Vital Signs Vitals Vital Signs Date Time Temp Pulse Resp B/P Pulse Ox O2 Delivery O2 Flow Rate FiO2 11/22/16 20:13 98.2 92 20 180/95 94 11/22/16 18:22 Nasal Cannula 2.0 Intake and Output 11/21/16 11/21/16 11/22/16 15:00 23:00 07:00 Intake Total 1310 ml 1400 ml Output Total 8 ml Balance 1310 ml 1392 ml Results Result Diagram: 11/22/16 1020 11/21/16 1415 Results 24 hrs Laboratory Tests Test 11/22/16 01:17 11/22/16 07:57 11/22/16 10:20 Activated Partial Thromboplast Time 26.4 26.4 Lab Scanned Report BLOOD TRANSFUSION White Blood Count 9.3 Red Blood Count 5.03 Hemoglobin 10.1 L Hematocrit 34.8 L Mean Corpuscular Volume 69.2 L Mean Corpuscular Hemoglobin 20.1 L Mean Corpuscular Hemoglobin Concent 29.0 L Red Cell Distribution Width 24.2 H Platelet Count 354 Mean Platelet Volume 9.4 Neutrophils % 66.7 Lymphocytes % 19.5 Monocytes % 6.8 Eosinophils % 5.4 Basophils % 0.8 Nucleated Red Blood Cells % 0.0 Neutrophils # 6.2 Lymphocytes # 1.8 Monocytes # 0.6 Eosinophils # 0.5 Basophils # 0.1 Nucleated Red Blood Cells # 0.0 Medications Medications Current Medications Lorazepam (Ativan) 0.5 mg Q8H PRN PO ANXIETY; Start 11/20/16 at 05:30 Ondansetron HCl (Zofran Inj) 4 mg Q6H PRN IV NAUSEA AND/OR VOMITING; Start at 05:30 Acetaminophen (Tylenol Tab) 650 mg Q6H PRN PO PAIN LEVEL 1-3 OR FEVER; Start at 05:30 Morphine Sulfate (morphine) 2 mg Q4H PRN IV PAIN LEVEL 7-10 Last administered on 11/20/16 13:49; Admin Dose 2 MG; Start 11/20/16 at 05:30 Pantoprazole (Protonix Iv) 40 mg DAILY@06 IV Last administered on 11/22/16 06: 18; Admin Dose 40 MG; Start 11/20/16 at 06:00 Hydromorphone HCl (Dilaudid) 0.5 mg Q4H PRN IV PAIN Last administered on 20:31; Admin Dose 0.5 MG; Start 11/20/16 at 20:00 Hydroxyzine HCl (Atarax) 50 mg Q6 PRN PO ITCHING Last administered on 12:20; Admin Dose 50 MG; Start 11/20/16 at 20:00 Zolpidem Tartrate (Ambien) 10 mg HS PRN PO INSOMNIA Last administered on 01:18; Admin Dose 10 MG; Start 11/20/16 at 20:00 IV Flush 10 ml 10 ml PRN PRN IV IV PROTOCOL; Start 11/21/16 at 12:30 Ferric Sodium Gluconate Complex 125 mg/Sodium Chloride 110 ml @ 100 mls/hr Q24H IVPB Last administered on 11/22/16 12:03; Admin Dose 100 MLS/HR; Start at 12:30; Stop 11/23/16 at 13:35 Heparin Sodium (Porcine) (Heparin 09505 Units/250 ml) 250 ml @ 5.5 mls/hr Q24H IV Last administered on 11/22/16 19:01; Admin Dose 8 MLS/HR; Start 11/21/16 at 18:30 Heparin Sodium (Porcine) (Heparin (1000 Units/ml)) 4,800 unit PRN PRN IV PENDING LAB VALUE Last administered on 11/22/16 19:11; Admin Dose 4,800 UNIT; Start 11/22/16 at 03:00 Hydralazine HCl (Apresoline) 10 mg Q4H PRN IV ELEVATED SYSTOLIC BP Last administered on 11/22/16 23:43; Admin Dose 10 MG; Start 11/22/16 at 23:30 RAVEN MOLINA MD Nov 22, 2016 23:58
[2016-11-23] VITALS (15 sets, daily range): BP systolic 125–174; BP diastolic 58–109; PULSE 81–111; RESP 18–21
[2016-11-23] MEDS: HYDROmorphONE 1 MG/ML SYG IV PRN ×4 (01:29→20:41)
[2016-11-23] MEDS: HEPARIN 1000 UNITS/ML 10 ML INJ IV PRN ×2 (02:11→10:02)
[2016-11-23] MEDS: HEPARIN 25000 UNITS/D5W 250 ML (VPH) IV SCH ×2 (02:16→10:04)
[2016-11-23] MEDS ORDERED: LAMOTRIGINE 25 MG TAB PO ONE (03:30)
[2016-11-23] MEDS: PANTOPRAZOLE 40 MG INJ IV SCH (05:18)
[2016-11-23 07:42] LABS: ADD SCAN DIFF NO
[2016-11-23 07:54] LABS: ABNORMAL IP MESSAGE 1; BASOPHIL # 0.1 10^3/ul (0.0-0.1); BASOPHILS % 0.8 % (0.0-2.0); EOSINOPHILS # 0.6 10^3/ul (0.0-0.5); EOSINOPHILS % 8.6 % (0.0-7.0); HEMATOCRIT 30.2 % (37.0-47.0); HEMOGLOBIN 8.9 g/dl (12.0-16.0); LYMPHOCYTES # 2.7 10^3/ul (0.8-2.9); LYMPHOCYTES % 37.1 % (15.0-51.0); MEAN CORPUSCULAR HEMOGLOBIN 20.4 pg (29.0-33.0); MEAN CORPUSCULAR HGB CONC 29.5 g/dl (32.0-37.0); MEAN CORPUSCULAR VOLUME 69.3 fl (82.0-101.0); MEAN PLATELET VOLUME 9.6 fl (7.4-10.4); MONOCYTE # 0.7 10^3/ul (0.3-0.9); MONOCYTES % 9.4 % (0.0-11.0); NEUTROPHIL # 3.1 10^3/ul (1.6-7.5); NEUTROPHILS % 43.4 % (39.0-77.0); PLATELET COUNT 294 10^3/UL (140-415); RED BLOOD COUNT 4.36 10^6/ul (4.20-5.40); RED CELL DISTRIBUTION WIDTH 25.2 % (11.5-14.5); WHITE BLOOD COUNT 7.2 10^3/ul (4.8-10.8)
[2016-11-23] MEDS: hydrOXYzine HCL 25 MG TAB PO PRN (10:01)
--- NOTE | 2016-11-23 11:54 | RADRPT ---
PROCEDURE: US Pelvis CLINICAL INDICATION: evaluate for fibroids or reason for iron deficiencey anemia TECHNIQUE: Multiple sonographic images of the pelvis were obtained utilizing a transabdominal and endovaginal technique. The images were reviewed on a PACS workstation. COMPARISON: None. LMP: 11/22/2016 FINDINGS: The uterus measures 6.8 x 2.6 x 4.2 cm. The endometrial echo complex measures 6 mm in thickness. No discrete lesion is identified. The right ovary is not visualized. The left ovary measures 2.5 x 1.4 x 2.0 cm. There is normal vascu lar flow in the left ovary. No significant ovarian lesions are seen. No significant pelvic free fluid is identified. IMPRESSION: Unremarkable pelvic ultrasound, as above. No uterine fibroids identified. Nonvisualization of the right ovary. RPTAT: EE Physician Renard Date Time Electronically viewed and signed by Physician Renard on 11/23/2016 11:53 /
--- NOTE | 2016-11-23 14:10 | PN ---
Date/Time of Note Date/Time of Note DATE: 11/23/16 TIME: 14:05 Assessment/Plan VTE Prophylaxis VTE Prophylaxis Intervention: heparin Lines/Catheters IV [facility] Type [facility] PICC Line Central line still needed: Yes Urinary Cath still in place: No Assessment/Plan Assessment/Plan Assessment * Pulmonary embolism * Deep vein thrombosis * Anemia Iron deficiency * EGD mild gastritis * Colonoscopy polyp descending colon * History of Bipolar Plan * Continue present management Subjective 24 Hr Interval Summary Free Text/Dictation * Course reviewed with RN * Patient seen and examined * No bleeding * EGD mild gastritis * Colonoscopy polyp descending colon Exam/Review of Systems Vital Signs Vitals Vital Signs Date Time Temp Pulse Resp B/P Pulse Ox O2 Delivery O2 Flow Rate FiO2 11/23/16 12:29 83 11/23/16 11:41 97.9 18 169/84 100 11/23/16 06:23 Nasal Cannula 11/23/16 02:00 2.0 Intake and Output 11/22/16 11/22/16 11/23/16 15:00 23:00 07:00 Intake Total 110 ml 1100 ml Output Total 3 ml 4 ml Balance 110 ml -3 ml 1096 ml Exam Constitutional: alert, well developed Head: atraumatic, normocephalic Neck: non-tender, supple Respiratory: clear to auscultation, normal air movement Cardiovascular: nl pulses, regular rate and rhythm Gastrointestinal: non-tender, soft Musculoskeletal: nl extremities to inspection, nl gait and stance Neurological: [employer] II-XII intact, nl mental status Results Result Diagram: 11/23/16 0650 11/21/16 1415 Results 24 hrs Laboratory Tests Test 11/23/16 01:00 11/23/16 06:50 Activated Partial Thromboplast Time 38.8 H 35.6 H White Blood Count 7.2 # Red Blood Count 4.36 Hemoglobin 8.9 L Hematocrit 30.2 L Mean Corpuscular Volume 69.3 L Mean Corpuscular Hemoglobin 20.4 L Mean Corpuscular Hemoglobin Concent 29.5 L Red Cell Distribution Width 25.2 H Platelet Count 294 Mean Platelet Volume 9.6 Neutrophils % 43.4 Lymphocytes % 37.1 Monocytes % 9.4 Eosinophils % 8.6 H Basophils % 0.8 Nucleated Red Blood Cells % 0.0 Neutrophils # 3.1 Lymphocytes # 2.7 Monocytes # 0.7 Eosinophils # 0.6 H Basophils # 0.1 Nucleated Red Blood Cells # 0.0 Medications Medications Current Medications Lorazepam (Ativan) 0.5 mg Q8H PRN PO ANXIETY; Start 11/20/16 at 05:30 Ondansetron HCl (Zofran Inj) 4 mg Q6H PRN IV NAUSEA AND/OR VOMITING; Start at 05:30 Acetaminophen (Tylenol Tab) 650 mg Q6H PRN PO PAIN LEVEL 1-3 OR FEVER; Start at 05:30 Morphine Sulfate (morphine) 2 mg Q4H PRN IV PAIN LEVEL 7-10 Last administered on 11/20/16 13:49; Admin Dose 2 MG; Start 11/20/16 at 05:30 Pantoprazole (Protonix Iv) 40 mg DAILY@06 IV Last administered on 11/23/16 05: 18; Admin Dose 40 MG; Start 11/20/16 at 06:00 Hydromorphone HCl (Dilaudid) 0.5 mg Q4H PRN IV PAIN Last administered on 11:53; Admin Dose 0.5 MG; Start 11/20/16 at 20:00 Hydroxyzine HCl (Atarax) 50 mg Q6 PRN PO ITCHING Last administered on 10:01; Admin Dose 50 MG; Start 11/20/16 at 20:00 Zolpidem Tartrate (Ambien) 10 mg HS PRN PO INSOMNIA Last administered on 01:18; Admin Dose 10 MG; Start 11/20/16 at 20:00 IV Flush 10 ml 10 ml PRN PRN IV IV PROTOCOL; Start 11/21/16 at 12:30 Heparin Sodium (Porcine) (Heparin 33763 Units/250 ml) 250 ml @ 5.5 mls/hr Q24H IV Last administered on 11/23/16 10:04; Admin Dose 13 MLS/HR; Start 11/21/16 at 18:30 Heparin Sodium (Porcine) (Heparin (1000 Units/ml)) 4,800 unit PRN PRN IV PENDING LAB VALUE Last administered on 11/23/16 10:02; Admin Dose 4,800 UNIT; Start 11/22/16 at 03:00 Hydralazine HCl (Apresoline) 10 mg Q4H PRN IV ELEVATED SYSTOLIC BP Last administered on 11/22/16t 23:43; Admin Dose 10 MG; Start 11/22/16 at 23:30 Lamotrigine (Lamictal) 75 mg QHS PO ; Start 11/23/16 at 21:00 FRANKLYN SAWYER NP Nov 23, 2016 14:10
--- NOTE | 2016-11-23 14:32 | CONS ---
Date/Time of Note Date/Time of Note DATE: 11/23/16 TIME: 14:21 Assessment/Plan Assessment/Plan Chief Complaint/Hosp Course 46 yo with # microcytic anemia -EGD demonstrated mild gastritis. she may have had a GI bleed that resolved -pt responded well to 2 units of PRBCs -given patient is severely iron deficient with a ferritin of 2, will continue IV iron for now -pelvic zi does not show obvious source of vaginal bleed. #Bilateral PE and RLE DVT -given there is no evidence of active GI or vaginal bleed, can continue anticoagulation at this time. if no other procedures are scheduled would switch to eliquis 10mg BID x 7 days then 5 mg BID there after for at least 6 months -pt has been on OCP's for at least 18years. Although this may be the cause,we still need to rule out underlying hypercoagulable disorder. pt encouraged to stay off OCP's -Echo cardiogram ok and does not reveal evidence of heart strain -f/u hypercoagulable workup to help decide on duration of treatment Approximately 40 min were spent at patient's bedside and in coordination of her care Problems: Consultation Date/Type/Reason Admit Date/Time Nov 20, 2016 at 03:58 Initial Consult Date 11/20/16 Type of Consultation: Hematology Reason for Consultation iron deficiency anemia/ pulmonary embolism Referring Provider: RAVEN MOLINA MD 24 HR Interval Summary Free Text/Dictation pt had EGD and coloscopy which showed mild gastritis. Exam/Review of Systems Vital Signs Vitals Vital Signs Date Time Temp Pulse Resp B/P Pulse Ox O2 Delivery O2 Flow Rate FiO2 11/23/16 12:29 83 11/23/16 11:41 97.9 18 169/84 100 11/23/16 06:23 Nasal Cannula 11/23/16 02:00 2.0 Intake and Output 11/22/16 11/22/16 11/23/16 15:00 23:00 07:00 Intake Total 110 ml 1100 ml Output Total 3 ml 4 ml Balance 110 ml -3 ml 1096 ml Exam Constitutional: alert, oriented Psych: no complaints Head: normocephalic Eyes: nl conjunctiva ENMT: nl external ears & nose, nl lips & teeth Neck: non-tender, supple Respiratory: clear to auscultation, normal air movement Cardiovascular: regular rate and rhythm Gastrointestinal: soft Results Result Diagram: 11/23/16 0650 11/21/16 1415 Results 24 hrs Laboratory Tests Test 11/23/16 01:00 11/23/16 06:50 Activated Partial Thromboplast Time 38.8 H 35.6 H White Blood Count 7.2 # Red Blood Count 4.36 Hemoglobin 8.9 L Hematocrit 30.2 L Mean Corpuscular Volume 69.3 L Mean Corpuscular Hemoglobin 20.4 L Mean Corpuscular Hemoglobin Concent 29.5 L Red Cell Distribution Width 25.2 H Platelet Count 294 Mean Platelet Volume 9.6 Neutrophils % 43.4 Lymphocytes % 37.1 Monocytes % 9.4 Eosinophils % 8.6 H Basophils % 0.8 Nucleated Red Blood Cells % 0.0 Neutrophils # 3.1 Lymphocytes # 2.7 Monocytes # 0.7 Eosinophils # 0.6 H Basophils # 0.1 Nucleated Red Blood Cells # 0.0 Medications Medications Current Medications Lorazepam (Ativan) 0.5 mg Q8H PRN PO ANXIETY; Start 11/20/16 at 05:30 Ondansetron HCl (Zofran Inj) 4 mg Q6H PRN IV NAUSEA AND/OR VOMITING; Start at 05:30 Acetaminophen (Tylenol Tab) 650 mg Q6H PRN PO PAIN LEVEL 1-3 OR FEVER; Start at 05:30 Morphine Sulfate (morphine) 2 mg Q4H PRN IV PAIN LEVEL 7-10 Last administered on 11/20/16 13:49; Admin Dose 2 MG; Start 11/20/16 at 05:30 Pantoprazole (Protonix Iv) 40 mg DAILY@06 IV Last administered on 11/23/16 05: 18; Admin Dose 40 MG; Start 11/20/16 at 06:00 Hydromorphone HCl (Dilaudid) 0.5 mg Q4H PRN IV PAIN Last administered on 11:53; Admin Dose 0.5 MG; Start 11/20/16 at 20:00 Hydroxyzine HCl (Atarax) 50 mg Q6 PRN PO ITCHING Last administered on 10:01; Admin Dose 50 MG; Start 11/20/16 at 20:00 Zolpidem Tartrate (Ambien) 10 mg HS PRN PO INSOMNIA Last administered on 01:18; Admin Dose 10 MG; Start 11/20/16 at 20:00 IV Flush 10 ml 10 ml PRN PRN IV IV PROTOCOL; Start 11/21/16 at 12:30 Heparin Sodium (Porcine) (Heparin 16376 Units/250 ml) 250 ml @ 5.5 mls/hr Q24H IV Last administered on 11/23/16 10:04; Admin Dose 13 MLS/HR; Start 11/21/16 at 18:30 Heparin Sodium (Porcine) (Heparin (1000 Units/ml)) 4,800 unit PRN PRN IV PENDING LAB VALUE Last administered on 11/23/16 10:02; Admin Dose 4,800 UNIT; Start 11/22/16 at 03:00 Hydralazine HCl (Apresoline) 10 mg Q4H PRN IV ELEVATED SYSTOLIC BP Last administered on 11/22/16 23:43; Admin Dose 10 MG; Start 11/22/16 at 23:30 Lamotrigine (Lamictal) 75 mg QHS PO ; Start 11/23/16 at 21:00 GYPSY JIMENEZ M.D. Nov 23, 2016 14:32
[2016-11-23] MEDS: SOD FERRIC GLUC COMPLX 125 MG in SOD CHLORIDE 0.9% 100 ML IVPB SCH (14:34)
--- NOTE | 2016-11-23 14:56 | GILP ---
DATE OF PROCEDURE: 11/22/2016 NAME OF PROCEDURE: Colonoscopy to cecum. SURGEON: Kevan Hoang MD. HISTORY AND INDICATIONS: The patient is being evaluated for severe and significant anemia and need for anticoagulation. PREMEDICATION: Monitored anesthesia care by anesthesiologist. INSTRUMENT USED: Olympus colonoscope. PREPARATION: Adequate. TECHNIQUE: After informed consent, with the patient/relatives understanding the procedure, its indic ations potential risks and complications, including but not limited to: allergic reaction, bleeding, perforation, infection, missed lesions and after all pertinent questions were answered to the patie nt's satisfaction, the patient/relatives signed the witnessed informed consent. Following this, premedication was administered slowly IV push by under careful cardiovascular and re spiratory monitoring with pulse oximetry, automatic blood pressure and threat monitoring analyst. Once the sedativ e effect was achieved, the patient was placed in the left lateral decubitus position, digital rectal examination was performed. The colonoscope was then introduced and advanced under visual control th roughout all segments of the colon including: the rectum, sigmoid, descending colon, splenic flexure , transverse colon, hepatic flexure, ascending colon and finally reaching the cecum which was clearl y identified by transillumination, finger indentation and the ileocecal valve. Careful examination o f the mucosa of the lower gastrointestinal tract both on insertion as well as withdrawal of the inst rument disclosed the following findings: Rectal Examination: No evidence of perirectal disease, no masses. Colonic Mucosa: The colonic mucosa is remarkable for a 10 mm sessile polyp which is noted in the de scending colon. There is no evidence of bleeding. The polyp was left untouched as snare polypectom y of a sessile polyp would result in ulceration and would create an increased risk of bleeding. The polyp is clearly benign in appearance and should be removed once treatment of pulmonary embolism wi th anticoagulation is completed in 6 to 12 months. There are no additional abnormalities in the col onic mucosa. The ileocecal valve was clearly identified and appears unremarkable. The instrument w as withdrawn. On withdrawal of the instrument, no additional abnormalities are noted with exception of moderate sized internal hemorrhoids. IMPRESSION: 1. A 10 mm sessile polyp in the descending colon, left untouched to avoid potential bleeding at ethan ypectomy site where ulceration would be forming if the polyp was to be transected. The polyp should be removed upon completion of 6 to 12 months of anticoagulation required for pulmonary embolism, or earlier if situation allows. 2. Moderate sized internal hemorrhoids. Dictated By: KEVAN HOANG MS/MARILY Conf#: [id number] DID#: [id number] CC: KEVAN HOANG;*EndCC*
[2016-11-23] MEDS ORDERED: SOD FERRIC GLUC COMPLX 125 MG in SOD CHLORIDE 0.9% 100 ML IVPB SCH (16:00)
[2016-11-23] MEDS: APIXABAN 5 MG TABLET PO SCH (20:40)
[2016-11-23] MEDS: LAMOTRIGINE 25 MG TAB PO SCH ×2 (20:40→21:00)
[2016-11-23] MEDS: ZOLPIDEM 5 MG TAB PO PRN (23:44)
[2016-11-24] VITALS (8 sets, daily range): BP systolic 129–142; BP diastolic 64–72; PULSE 80–98; RESP 16–18
[2016-11-24] MEDS: HYDROmorphONE 1 MG/ML SYG IV PRN ×3 (00:58→15:15)
[2016-11-24] MEDS: PANTOPRAZOLE 40 MG INJ IV SCH (06:20)
[2016-11-24 06:41] LABS: ADD SCAN DIFF NO
[2016-11-24 06:58] LABS: ABNORMAL IP MESSAGE 1; BASOPHIL # 0.1 10^3/ul (0.0-0.1); BASOPHILS % 0.9 % (0.0-2.0); EOSINOPHILS # 0.5 10^3/ul (0.0-0.5); EOSINOPHILS % 9.8 % (0.0-7.0); HEMATOCRIT 30.2 % (37.0-47.0); HEMOGLOBIN 8.8 g/dl (12.0-16.0); LYMPHOCYTES # 2.2 10^3/ul (0.8-2.9); LYMPHOCYTES % 40.9 % (15.0-51.0); MEAN CORPUSCULAR HEMOGLOBIN 20.5 pg (29.0-33.0); MEAN CORPUSCULAR HGB CONC 29.1 g/dl (32.0-37.0); MEAN CORPUSCULAR VOLUME 70.2 fl (82.0-101.0); MEAN PLATELET VOLUME 9.2 fl (7.4-10.4); MONOCYTE # 0.5 10^3/ul (0.3-0.9); MONOCYTES % 8.9 % (0.0-11.0); NEUTROPHIL # 2.1 10^3/ul (1.6-7.5); NEUTROPHILS % 38.7 % (39.0-77.0); PLATELET COUNT 270 10^3/UL (140-415); RED CELL DISTRIBUTION WIDTH 25.2 % (11.5-14.5); WHITE BLOOD COUNT 5.3 10^3/ul (4.8-10.8)
--- NOTE | 2016-11-24 07:56 | GILP ---
DATE OF PROCEDURE: 11/22/2016 PROCEDURE: Esophagogastroduodenoscopy with biopsies. BRIEF HISTORY AND INDICATION: The patient is being evaluated for significant anemia. The patient w ill require anticoagulation. PREMEDICATION: Monitored anesthesia care by anesthesiologist. SURGEON: Elena Hoang MD INSTRUMENT USED: Olympus panendoscope. TECHNIQUE: After informed consent, with the patient/relatives understanding the procedure, its indic ations, potential risks and complications, including but not limited to: allergic reaction, bleeding , perforation or infection, and after all pertinent questions were answered to the patients satisfac tion, the patient/relatives signed witnessed informed consent. Following this, premedication was adm inistered slowly IV push under careful cardiovascular and respiratory monitoring with pulse oximetry , automatic blood pressure and toy trains and accessories salesperson. Once the sedative effect was achieved the patient was pl paige in the left lateral decubitus, the panendoscope was introduced and advanced under visual control . Careful examination of the upper gastrointestinal tract, both on insertion as well as withdrawal of the instrument disclosed the following findings: ESOPHAGUS: The mucosa of the entire esophagus appears within normal limits. There is no evidence of esophagitis, varices, neoplasm or stricture. No hiatal hernia identified. STOMACH: Upon entrance to the stomach, air was insufflated, the gastric james distended normally. There is erythema and edema of the mucosa of a mild degree. No biopsies were obtained due to the patient impending anticoagulation and to decrease the flores heather of . PYLORUS: The pylorus appears patent and within normal limits, with no evidence of gastric outlet ob struction. DUODENUM: The duodenal mucosa was carefully examined in the duodenal bulb as well as the second por tion of the duodenum and appears unremarkable with no evidence of duodenitis, ulcer or neoplasm. The instrument was then withdrawn, the patient tolerated the procedure well and was transfer out of the endoscopy suite awake, and in good condition to continue recovery under observation IMPRESSION: Mild gastritis. PLAN: The patient will be treated with PPIs. H. pylori serology will be requested. Dictated By: ELENA HOANG MS/MARILY Conf#: [id number] DID#: [id number] CC: ELENA HOANG;*EndCC*
[2016-11-24] MEDS: APIXABAN 5 MG TABLET PO SCH (09:13)
--- NOTE | 2016-11-24 10:29 | CONS ---
Date/Time of Note Date/Time of Note DATE: 11/24/16 TIME: 10:26 Assessment/Plan Assessment/Plan Chief Complaint/Hosp Course 46 yo with # microcytic anemia -EGD demonstrated mild gastritis. she may have had a GI bleed that resolved -pt responded well to 2 units of PRBCs -given patient is severely iron deficient with a ferritin of 2, will continue IV iron for now -pelvic zi does not show obvious source of vaginal bleed. -pt told to avoid NSAIDS #Bilateral PE and RLE DVT -continue eliquis 10mg BID x 7 days then 5 mg BID there after for at least 6 months -pt has been on OCP's for at least 18years. Although this may be the cause,we still need to rule out underlying hypercoagulable disorder. pt encouraged to stay off OCP's -Echo cardiogram ok and does not reveal evidence of heart strain -f/u hypercoagulable workup to help decide on duration of treatment Pt will f/u in our clinic within 3 weeks Approximately 40 min were spent at patient's bedside and in coordination of her care Problems: Consultation Date/Type/Reason Admit Date/Time Nov 20, 2016 at 03:58 Initial Consult Date 11/20/16 Type of Consultation: Hematology Reason for Consultation pulmonary embolism Referring Provider: RAVEN MOLINA MD 24 HR Interval Summary Free Text/Dictation pt continues on IV iron . states her ICE craving is better. started on Eliquis. no bleeding Exam/Review of Systems Vital Signs Vitals Vital Signs Date Time Temp Pulse Resp B/P Pulse Ox O2 Delivery O2 Flow Rate FiO2 11/24/16 08:40 80 11/24/16 07:37 98.6 18 138/67 97 11/23/16 20:30 Room Air 11/23/16 02:00 2.0 Intake and Output 11/23/16 11/23/16 11/24/16 15:00 23:00 07:00 Intake Total 31.5 ml 1929 ml 550 ml Output Total 6 ml 4 ml Balance 31.5 ml 1923 ml 546 ml Exam Constitutional: alert, oriented Psych: no complaints Head: atraumatic, normocephalic Eyes: nl conjunctiva ENMT: nl external ears & nose Neck: non-tender, supple Respiratory: clear to auscultation, normal air movement Cardiovascular: regular rate and rhythm Gastrointestinal: soft Musculoskeletal: nl extremities to inspection, nl gait and stance Extremities: normal pulses Results Result Diagram: 11/24/16 0624 11/21/16 1415 Results 24 hrs Laboratory Tests Test 11/24/16 06:24 White Blood Count 5.3 # Red Blood Count 4.30 Hemoglobin 8.8 L Hematocrit 30.2 L Mean Corpuscular Volume 70.2 L Mean Corpuscular Hemoglobin 20.5 L Mean Corpuscular Hemoglobin Concent 29.1 L Red Cell Distribution Width 25.2 H Platelet Count 270 Mean Platelet Volume 9.2 Neutrophils % 38.7 L Lymphocytes % 40.9 Monocytes % 8.9 Eosinophils % 9.8 H Basophils % 0.9 Nucleated Red Blood Cells % 0.0 Neutrophils # 2.1 Lymphocytes # 2.2 Monocytes # 0.5 Eosinophils # 0.5 Basophils # 0.1 Nucleated Red Blood Cells # 0.0 Medications Medications Current Medications Lorazepam (Ativan) 0.5 mg Q8H PRN PO ANXIETY; Start 11/20/16 at 05:30 Ondansetron HCl (Zofran Inj) 4 mg Q6H PRN IV NAUSEA AND/OR VOMITING; Start at 05:30 Acetaminophen (Tylenol Tab) 650 mg Q6H PRN PO PAIN LEVEL 1-3 OR FEVER Last administered on 11/23/16 19:47; Admin Dose 650 MG; Start 11/20/16 at 05:30 Morphine Sulfate (morphine) 2 mg Q4H PRN IV PAIN LEVEL 7-10 Last administered on 11/20/16 13:49; Admin Dose 2 MG; Start 11/20/16 at 05:30 Pantoprazole (Protonix Iv) 40 mg DAILY@06 IV Last administered on 11/24/16 06: 20; Admin Dose 40 MG; Start 11/20/16 at 06:00 Hydromorphone HCl (Dilaudid) 0.5 mg Q4H PRN IV PAIN Last administered on 00:58; Admin Dose 0.5 MG; Start 11/20/16 at 20:00 Hydroxyzine HCl (Atarax) 50 mg Q6 PRN PO ITCHING Last administered on 10:01; Admin Dose 50 MG; Start 11/20/16 at 20:00 Zolpidem Tartrate (Ambien) 10 mg HS PRN PO INSOMNIA Last administered on 23:44; Admin Dose 10 MG; Start 11/20/16 at 20:00 IV Flush (NS 10 ml) 10 ml PRN PRN IV IV PROTOCOL; Start 11/21/16 at 12:30 Hydralazine HCl (Apresoline) 10 mg Q4H PRN IV ELEVATED SYSTOLIC BP Last administered on 11/22/16 23:43; Admin Dose 10 MG; Start 11/22/16 at 23:30 Lamotrigine (Lamictal) 75 mg QHS PO ; Start 11/23/16 at 21:00 Apixaban 10 mg 10 mg BID PO Last administered on 11/24/16 09:13; Admin Dose 10 MG; Start 11/23/16 at 21:00; Stop 11/30/16 at 09:01 Ferric Sodium Gluconate Complex/ Sodium Chloride (Ferrlecit/NS) 110 ml @ 110 mls/hr Q24H IVPB ; Start 11/24/16 at 16:00; Stop 11/28/16 at 16:59 Apixaban (Eliquis) 5 mg BID PO ; Start 11/30/16 at 21:00 Hydromorphone HCl (Dilaudid) 0.5 mg ONCE ONCE IV Last administered on 10:22; Admin Dose 0.5 MG; Start 11/24/16 at 10:30; Stop 11/24/16 at 10:31 GYPSY JIMENEZ M.D. Nov 24, 2016 10:29
[2016-11-24] MEDS ORDERED: HYDROmorphONE 1 MG/ML SYG IV ONE (10:30)
[2016-11-24] MEDS ORDERED: SOD FERRIC GLUC COMPLX 125 MG in SOD CHLORIDE 0.9% 100 ML IVPB SCH (16:00)
--- NOTE | 2016-11-24 16:39 | PN ---
Date/Time of Note Date/Time of Note DATE: 11/24/16 TIME: 16:36 Assessment/Plan VTE Prophylaxis VTE Prophylaxis Intervention: ambulation Lines/Catheters [facility] PICC Line Central line still needed: Yes Urinary Cath still in place: No Assessment/Plan Assessment/Plan ssessment * Pulmonary embolism * Deep vein thrombosis * Anemia Iron deficiency * EGD mild gastritis * Colonoscopy polyp descending colon * History of Bipolar Plan * Continue present management * explained to patient that polypectomy can be performed 6 months after anticoagulation * We will signed off but will follow up as needed * case discussed with Dr Hoang Subjective 24 Hr Interval Summary Free Text/Dictation * Course reviewed with RN * Patient seen and examined * no complaints Exam/Review of Systems Vital Signs Vitals Vital Signs Date Time Temp Pulse Resp B/P Pulse Ox O2 Delivery O2 Flow Rate FiO2 11/24/16 12:30 92 11/24/16 11:32 98.2 18 129/72 96 11/23/16 20:30 Room Air 11/23/16 02:00 2.0 Intake and Output 11/23/16 11/23/16 11/24/16 15:00 23:00 07:00 Intake Total 31.5 ml 1929 ml 550 ml Output Total 6 ml 4 ml Balance 31.5 ml 1923 ml 546 ml Exam Constitutional: alert Head: atraumatic, normocephalic Neck: non-tender, supple Respiratory: clear to auscultation, normal air movement Cardiovascular: nl pulses, regular rate and rhythm Gastrointestinal: nl liver, spleen, non-tender, soft Musculoskeletal: nl extremities to inspection, nl gait and stance Extremities: normal pulses Neurological: nl mental status Results Result Diagram: 11/24/16 0624 11/21/16 1415 Results 24 hrs Laboratory Tests Test 11/24/16 06:24 White Blood Count 5.3 # Red Blood Count 4.30 Hemoglobin 8.8 L Hematocrit 30.2 L Mean Corpuscular Volume 70.2 L Mean Corpuscular Hemoglobin 20.5 L Mean Corpuscular Hemoglobin Concent 29.1 L Red Cell Distribution Width 25.2 H Platelet Count 270 Mean Platelet Volume 9.2 Neutrophils % 38.7 L Lymphocytes % 40.9 Monocytes % 8.9 Eosinophils % 9.8 H Basophils % 0.9 Nucleated Red Blood Cells % 0.0 Neutrophils # 2.1 Lymphocytes # 2.2 Monocytes # 0.5 Eosinophils # 0.5 Basophils # 0.1 Nucleated Red Blood Cells # 0.0 Medications Medications Current Medications Lorazepam (Ativan) 0.5 mg Q8H PRN PO ANXIETY; Start 11/20/16 at 05:30 Ondansetron HCl (Zofran Inj) 4 mg Q6H PRN IV NAUSEA AND/OR VOMITING; Start at 05:30 Acetaminophen (Tylenol Tab) 650 mg Q6H PRN PO PAIN LEVEL 1-3 OR FEVER Last administered on 11/23/16 19:47; Admin Dose 650 MG; Start 11/20/16 at 05:30 Morphine Sulfate (morphine) 2 mg Q4H PRN IV PAIN LEVEL 7-10 Last administered on 11/20/16 13:49; Admin Dose 2 MG; Start 11/20/16 at 05:30 Pantoprazole (Protonix Iv) 40 mg DAILY@06 IV Last administered on 11/24/16 06: 20; Admin Dose 40 MG; Start 11/20/16 at 06:00 Hydromorphone HCl (Dilaudid) 0.5 mg Q4H PRN IV PAIN Last administered on 15:15; Admin Dose 0.5 MG; Start 11/20/16 at 20:00 Hydroxyzine HCl (Atarax) 50 mg Q6 PRN PO ITCHING Last administered on 10:01; Admin Dose 50 MG; Start 11/20/16 at 20:00 Zolpidem Tartrate (Ambien) 10 mg HS PRN PO INSOMNIA Last administered on 23:44; Admin Dose 10 MG; Start 11/20/16 at 20:00 IV Flush (NS 10 ml) 10 ml PRN PRN IV IV PROTOCOL; Start 11/21/16 at 12:30 Hydralazine HCl (Apresoline) 10 mg Q4H PRN IV ELEVATED SYSTOLIC BP Last administered on 11/22/16 23:43; Admin Dose 10 MG; Start 11/22/16 at 23:30 Lamotrigine (Lamictal) 75 mg QHS PO ; Start 11/23/16 at 21:00 Apixaban 10 mg 10 mg BID PO Last administered on 11/24/16 09:13; Admin Dose 10 MG; Start 11/23/16 at 21:00; Stop 11/30/16 at 09:01 Ferric Sodium Gluconate Complex/ Sodium Chloride (Ferrlecit/NS) 110 ml @ 110 mls/hr Q24H IVPB ; Start 11/24/16 at 16:00; Stop 11/28/16 at 16:59 Apixaban (Eliquis) 5 mg BID PO ; Start 11/30/16 at 21:00 FRANKLYN SAWYER NP Nov 24, 2016 16:39
[2016-11-24] MEDS ORDERED: FER325 PO (17:00)
[2016-11-24] MEDS ORDERED: TRAM50TA2 PO (17:00)
[2016-11-24] MEDS ORDERED: APIX5TAB PO ×2 (17:00)
--- NOTE | 2016-11-24 17:07 | PDOCDIS ---
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
[2016-11-30] MEDS ORDERED: APIXABAN 5 MG TABLET PO SCH (21:00)
== END 2016-11-24 18:50 | disposition home or self-care (01) | DRG 299 ==
LOC: E/R 17:03 → TEL 11-20 03:58
PROVIDERS: ADMIT Family Medicine; ATTEND Family Medicine
PROC: 30233N1 Transfusion of Nonautologous Red Blood Cells into Peripheral Vein, Percutaneous Approach (ICD-10-PCS; 2016-11-20)
PROC: 02HV33Z Insertion of Infusion Device into Superior Vena Cava, Percutaneous Approach (ICD-10-PCS; 2016-11-21)
PROC: 0DBM8ZZ Excision of Descending Colon, Via Natural or Artificial Opening Endoscopic (ICD-10-PCS; principal; 2016-11-23)
PROC: 0DJ08ZZ Inspection of Upper Intestinal Tract, Via Natural or Artificial Opening Endoscopic (ICD-10-PCS; 2016-11-23)
DX: I82.431 Acute embolism and thrombosis of right popliteal vein (principal); I26.99 Other pulmonary embolism without acute cor pulmonale; K29.70 Gastritis, unspecified, without bleeding; K64.8 Other hemorrhoids; D12.4 Benign neoplasm of descending colon; D50.9 Iron deficiency anemia, unspecified; F31.9 Bipolar disorder, unspecified; G40.909 Epilepsy, unspecified, not intractable, without status epilepticus
CPT/HCPCS: 36430; 36569; 71010; 71275; 76536; 76856; 76937; 80048; 80053; 80061; 81240; 82607; 82728; 82746; 83036; 83090; 83540; 83735; 83890; 84439; 84443; 84481; 84484; 84703; 85014; 85018; 85025; 85300; 85302; 85305; 85610; 85613; 85730; 86147; 86644; 86850; 86900; 86901; 86920; 93005; 93306; 93971; 96374; 96375; 96376; J1940; C9113; J0360; J1170; J1644; J2060; J2270; J2916; J7040; P9016; Q9967

== ENCOUNTER 2018-01-12 01:02 | Emergency (ER) | END 2018-01-12 02:05 | disposition home or self-care (01) ==